=== PATIENT | female | born 1990 | race Caucasian/White ===

== ENCOUNTER 2016-07-12 15:03 | Inpatient (IN) | payer OTHER ==
[2016-07-12] MEDS ORDERED: ACETAMINOPHEN TAB 325 MG TAB PO STA (16:26)
[2016-07-12] MEDS ORDERED: SODIUM CHLORIDE 0.9% 1,000 ML IV STA (16:26)
[2016-07-12] MEDS ORDERED: IV VANCOMYCIN PER PHARMACY 1 EACH MISC MISCELLANE PRN (16:42)
--- NOTE | 2016-07-12 16:42 | ED ---
General Adult HPI - General Chief complaint: Extremity Problem,Nontraumatic Stated complaint: Feet swollen Time Seen by Provider: 07/12/16 16:10 Source: patient Mode of arrival: ambulatory Limitations: no limitations - History of Present Illness Initial comments: The patient is a 26-year-old female who presents to the ED with a chief complaint of lower extremity swelling. Patient states that the swelling has been present intermittently over the course of the past several weeks. She followed up with her primary care physician, who started her on a water pill. Patient states that the swelling has improved in her lower extremities since she started this medication but that she has started to develop blisters on her feet. Patient also notes pain on the bottoms of her feet. She also notes pain and swelling in her hands. The patient does relate an incident approximately 2 weeks ago during which she had a crushing chest pain and pressure. She says she 's had intermittent pains in the left shoulder since that point in time. Patient does admit that she is a heroin user. She is struggling to quit this medication but states that she last used this morning. The patient denies any fevers or chills. She does cite more fatigued than usual recently. Patient denies any past diagnoses of endocarditis. - Related Data Home Medications Medication Instructions Recorded Confirmed ARIPiprazole [Abilify] 10 mg PO DAILY 07/12/16 07/12/16 Buspar (Unk Strength) 1 tab PO DAILY 07/12/16 07/12/16 Butalb/APAP/Caff 50-325-40Mg 1 tab PO Q4H PRN 07/12/16 07/12/16 [Fioricet 50-325-40] Divalproex ER [Depakote ER] 500 mg PO BID 07/12/16 07/12/16 Gabapentin [Neurontin] 300 mg PO TID 07/12/16 07/12/16 Ibuprofen [Motrin] 600 mg PO Q8HR PRN 07/12/16 07/12/16 Mirtazapine [Remeron] 45 mg PO HS 07/12/16 07/12/16 Sertraline [Zoloft] 50 mg PO DAILY 07/12/16 07/12/16 Allergies Allergy/AdvReac Type Severity Reaction Status Date / Time iodine Allergy Rash/Hives Verified 07/12/16 15:43 Review of Systems ROS Statement: Those systems with pertinent positive or pertinent negative responses have been documented in the HPI. ROS Other: All systems not noted in ROS Statement are negative. Constitutional: Reports: night sweats. Denies: fever, chills, weakness Eyes: Denies: eye pain ENT: Denies: ear pain, throat pain, dental pain, epistaxis Respiratory: Denies: cough, dyspnea, wheezes, hemoptysis, stridor Cardiovascular: Reports: chest pain. Denies: palpitations, dyspnea on exertion , orthopnea, edema Endocrine: Reports: fatigue Gastrointestinal: Denies: abdominal pain, nausea, vomiting, diarrhea Genitourinary: Denies: urgency, dysuria, frequency, hematuria Musculoskeletal: Denies: back pain Skin: Reports: rash (on hands), lesions (on bilateral toes), change in color Neurological: Denies: headache, weakness, numbness, paresthesias, confusion Psychiatric: Denies: anxiety, depression Past Medical History Past Medical History: No Reported History Additional Past Medical History / Comment(s): Hep C History of Any Multi-Drug Resistant Organisms: None Reported Past Surgical History: Ear Surgery Past Psychological History: ADD/ADHD Smoking Status: Current every day smoker Past Alcohol Use History: Occasional Past Drug Use History: Heroin General Exam Limitations: no limitations General appearance: alert, in no apparent distress Head exam: Present: atraumatic, normocephalic Eye exam: Present: normal appearance, PERRL, EOMI, other (no subconjunctival hemorrhages noted on exam). Absent: conjunctival injection Pupils: Present: normal accommodation ENT exam: Present: normal exam, normal oropharynx, mucous membranes dry Neck exam: Present: normal inspection, full ROM. Absent: tenderness, meningismus Respiratory exam: Present: normal lung sounds bilaterally. Absent: respiratory distress, wheezes, rales, rhonchi, stridor, chest wall tenderness Cardiovascular Exam: Present: tachycardia, systolic murmur (2/6 systolic murmur on exam) GI/Abdominal exam: Present: soft. Absent: tenderness, guarding, rebound, rigid Extremities exam: Present: other (trace swelling of the bilateral hands and feet. The patient's palms and soles are noted to be erythematous) Back exam: Present: normal inspection, full ROM Neurological exam: Present: alert, oriented X3 Psychiatric exam: Present: normal affect, normal mood Skin exam: Present: warm, dry, intact, other (Patient has Janeway lesions on the bilateral hands. Osler's nodes located on the bilateral great toes) Course Vital Signs 07/12/16 07/12/16 07/12/16 15:38 16:34 18:38 Temperature 97.8 F Pulse Rate 112 H 95 Pulse Rate [ 110 H Bilateral Radial] Respiratory 16 14 Rate Blood Pressure 102/55 118/66 O2 Sat by Pulse 95 99 Oximetry EKG Findings - EKG Comments: EKG Findings:: EKG demonstrates normal sinus rhythm. There are no concerning ST T changes. The ME and QRS intervals are within normal limits. Medical Decision Making - Medical Decision Making Patient is a 26-year-old female who presents to ED with a chief complaint of swelling of the bilateral lower extremities. Patient states that this has been present for the past 2 weeks. Patient recently started on a water pill with some improvement of symptoms. However, she has developed blisters on her bilateral great toes during this time. Patient also states that she had an episode two weeks ago of crushing chest pain. Persistent shoulder pain occurring intermittently since that point in time. Patient is regular IV drug user. On inspection, bleeding the patient has Janeway lesions the bilateral hands and Osler's nodes on the bilateral great toes. Patient has 2/6 systolic murmur on auscultation. Patient noted to be tachycardic. Concern for bacterial endocarditis until proven otherwise. Obtain blood cultures 3. Chest x-ray. CBC, BMP, mag. Check coags, troponin, BNP as well. Cover patient with vancomycin. 7:06 PM Spoke with [facility], who accepts admission for Dr. Jimenez. She has requested that Infectious Disease and Cardiology be placed on consult. Patient is comfortable at this point in time. - Lab Data Result diagrams: 07/12/16 17:06 07/12/16 17:06 Lab Results 07/12/16 07/12/16 07/12/16 Range/Units 17:06 17:06 17:06 WBC 6.7 (3.8-10.6) k/uL RBC 4.01 (3.80-5.40) m/uL Hgb 12.3 (11.4-16.0) gm/dL Hct 36.6 (34.0-46.0) % MCV 91.2 (80.0-100.0) fL MCH 30.8 (25.0-35.0) pg MCHC 33.7 (31.0-37.0) g/dL RDW 13.4 (11.5-15.5) % Plt Count 237 (150-450) k/uL Neutrophils % 56 % Lymphocytes % 27 % Monocytes % 4 % Eosinophils % 9 % Basophils % 1 % Neutrophils # 3.7 (1.3-7.7) k/uL Lymphocytes # 1.8 (1.0-4.8) k/uL Monocytes # 0.2 (0-1.0) k/uL Eosinophils # 0.6 (0-0.7) k/uL Basophils # 0.0 (0-0.2) k/uL PT (9.0-12.0) sec INR (<1.1) APTT (22.0-30.0) sec Sodium 136 L (137-145) mmol/L Potassium 4.1 (3.5-5.1) mmol/L Chloride 100 (98-107) mmol/L Carbon Dioxide 27 (22-30) mmol/L Anion Gap 9 mmol/L BUN 15 (7-17) mg/dL Creatinine 0.70 (0.52-1.04) mg/dL Est GFR (MDRD) Af Amer >60 (>60 ml/min/1.73 sqM) Est GFR (MDRD) Non-Af >60 (>60 ml/min/1.73 sqM) Glucose 92 (74-99) mg/dL Calcium 9.1 (8.4-10.2) mg/dL Total Bilirubin 0.6 (0.2-1.3) mg/dL AST 54 H (14-36) U/L ALT 70 H (9-52) U/L Alkaline Phosphatase 87 (38-126) U/L Troponin I (0.000-0.034) ng/mL NT-Pro-B Natriuret Pep 34 pg/mL Total Protein 7.7 (6.3-8.2) g/dL Albumin 4.0 (3.5-5.0) g/dL 07/12/16 07/12/16 Range/Units 17:06 17:06 WBC (3.8-10.6) k/uL RBC (3.80-5.40) m/uL Hgb (11.4-16.0) gm/dL Hct (34.0-46.0) % MCV (80.0-100.0) fL MCH (25.0-35.0) pg MCHC (31.0-37.0) g/dL RDW (11.5-15.5) % Plt Count (150-450) k/uL Neutrophils % % Lymphocytes % % Monocytes % % Eosinophils % % Basophils % % Neutrophils # (1.3-7.7) k/uL Lymphocytes # (1.0-4.8) k/uL Monocytes # (0-1.0) k/uL Eosinophils # (0-0.7) k/uL Basophils # (0-0.2) k/uL PT 9.9 (9.0-12.0) sec INR 1.0 (<1.1) APTT 25.9 (22.0-30.0) sec Sodium (137-145) mmol/L Potassium (3.5-5.1) mmol/L Chloride (98-107) mmol/L Carbon Dioxide (22-30) mmol/L Anion Gap mmol/L BUN (7-17) mg/dL Creatinine (0.52-1.04) mg/dL Est GFR (MDRD) Af Amer (>60 ml/min/1.73 sqM) Est GFR (MDRD) Non-Af (>60 ml/min/1.73 sqM) Glucose (74-99) mg/dL Calcium (8.4-10.2) mg/dL Total Bilirubin (0.2-1.3) mg/dL AST (14-36) U/L ALT (9-52) U/L Alkaline Phosphatase (38-126) U/L Troponin I <0.012 (0.000-0.034) ng/mL NT-Pro-B Natriuret Pep pg/mL Total Protein (6.3-8.2) g/dL Albumin (3.5-5.0) g/dL Disposition Clinical Impression: Acute bacterial endocarditis Disposition: ADMITTED IP TO THIS [facility] Condition: Good Time of Disposition: 19:07 Decision to Admit Reason: Admit from EC Decision Date: 07/12/16 Decision Time: 19:08
[2016-07-12] MEDS ORDERED: LORazepam 2 MG/ML SYRINGE IV STA (17:06)
[2016-07-12 17:17] LABS: Basophils % (A) 1 %; CH 31.8; Eosinophils # (A) 0.6 k/uL (0-0.7); Eosinophils % (A) 9 %; HCT 36.6 % (34.0-46.0); HDW 3.04; HGB 12.3 gm/dL (11.4-16.0); Luc # (Auto) 0.25; Luc % (Auto) 4; Lymphocytes # (A) 1.8 k/uL (1.0-4.8); Lymphocytes % (A) 27 %; MCH 30.8 pg (25.0-35.0); MCHC 33.7 g/dL (31.0-37.0); MCV 91.2 fL (80.0-100.0); Mean Platelet Volume 7.5; Monocytes # (A) 0.2 k/uL (0-1.0); Monocytes % (A) 4 %; Neutrophils # (A) 3.7 k/uL (1.3-7.7); Neutrophils % (A) 56 %; RBC 4.01 m/uL (3.80-5.40); RDW 13.4 % (11.5-15.5); WBC 6.7 k/uL (3.8-10.6); WBC (Perox) 6.96
[2016-07-12 17:24] LABS: Partial Thromboplastin Time 25.9 sec (22.0-30.0); Prothrombin Time 9.9 sec (9.0-12.0)
[2016-07-12 17:27] LABS: ALT 70 U/L (9-52); AST 54 U/L (14-36); Alkaline Phosphatase 87 U/L (38-126); Anion Gap 9 mmol/L; Blood Urea Nitrogen 15 mg/dL (7-17); Calcium 9.1 mg/dL (8.4-10.2); Carbon Dioxide 27 mmol/L (22-30); Chloride 100 mmol/L (98-107); Glucose 92 mg/dL (74-99); Non-African American GFR(MDRD) >60 (>60 ml/min/1.73 sqM); Potassium 4.1 mmol/L (3.5-5.1); Sodium 136 mmol/L (137-145); Total Bilirubin 0.6 mg/dL (0.2-1.3); Total Protein 7.7 g/dL (6.3-8.2)
[2016-07-12] MEDS ORDERED: VANCOMYCIN 1,500 MG in SODIUM CHLORIDE 0.9% 250 ML IVPB ONE (17:30)
--- NOTE | 2016-07-12 17:44 | XR ---
EXAMINATION TYPE: XR chest 2V DATE OF EXAM: 07/12/2016 5:36 PM COMPARISON: 07/07/2013 HISTORY: Pain and swelling TECHNIQUE: Frontal and lateral views of the chest are obtained. FINDINGS: Heart and mediastinum are normal. Lungs are clear. Diaphragm is normal. Bony thorax is int act. There are chest leads. IMPRESSION: Normal chest, no change
--- NOTE | 2016-07-12 18:46 | US ---
EXAMINATION TYPE: US venous doppler duplex LE BI DATE OF EXAM: 07/12/2016 6:24 PM COMPARISON: NONE CLINICAL HISTORY: Pain. Swelling SIDE PERFORMED: Bilateral VESSELS IMAGED: External Iliac Vein (EIV) Common Femoral Vein Deep Femoral Vein Greater Saphenous Vein * Femoral Vein Popliteal Vein Small Saphenous Vein * Proximal Calf Veins (* superficial vessels) Right Leg: Negative for DVT Left Leg: Negative for DVT IMPRESSION: Normal exam. No evidence of deep venous thrombosis in both legs.
[2016-07-12] MEDS ORDERED: NALOXONE 0.4 MG/ML 1 ML VIAL IV PRN (19:08)
[2016-07-12 19:09] LABS: Appearance,Urine Clear (Clear); Bacteria,Urine Rare /hpf; Bilirubin,Urine Negative (Negative); Glucose,Urine (UA) Negative (Negative); Ketones,Urine Negative (Negative); Leukocyte Esterase,Urine Negative (Negative); Nitrite,Urine Negative (Negative); PH, Urine 5.5 (5.0-8.0); Particle Count 1329; Protein,Urine Negative (Negative); Specific Gravity,Urine 1.004 (1.001-1.035); Squamous Epithelial Cell,Urine 1 /hpf (0-4); UA Billing (MACRO vs. MICRO) MICRO; Urobilinogen,Urine <2.0 mg/dL (<2.0); WBC,Urine 1 /hpf (0-5)
[2016-07-12] MEDS ORDERED: BUTALB/APAP/CAFF 50-325-40MG TAB PO PRN (21:00)
[2016-07-12] MEDS ORDERED: IBUPROFEN 600 MG TAB PO PRN (21:00)
[2016-07-12] MEDS ORDERED: ALBUTEROL NEBULIZED 2.5 MG/3 ML INHALATION PRN (21:00)
[2016-07-12] MEDS ORDERED: BUSPAR PO SCH (21:00)
[2016-07-12] MEDS: DIVALPROEX ER 500 MG TAB.ER.24H PO SCH (21:39)
[2016-07-12] MEDS: DOXYCYCLINE 50 MG CAP PO SCH (21:39)
[2016-07-12] MEDS: MIRTAZAPINE 45 MG TABLET PO SCH (21:40)
[2016-07-12] MEDS: GABAPENTIN 300 MG CAP PO SCH (21:40)
[2016-07-12] MEDS: FUROSEMIDE 20 MG TAB PO SCH (21:40)
[2016-07-12] MEDS: cloNIDine HCL 0.1 MG TAB PO SCH (21:40)
[2016-07-12] MEDS: NICOTINE 14MG/24HR PATCH TRANSDERM SCH (21:40)
[2016-07-12] MEDS: LORazepam 2 MG/ML SYRINGE IV PRN (21:49)
[2016-07-12] MEDS: VANCOMYCIN 1,500 MG in SODIUM CHLORIDE 0.9% 250 ML IVPB SCH (23:57)
[2016-07-13 06:52] LABS: ALT 67 U/L (9-52); AST 42 U/L (14-36); Alkaline Phosphatase 76 U/L (38-126); Anion Gap 7 mmol/L; Blood Urea Nitrogen 11 mg/dL (7-17); Calcium 8.6 mg/dL (8.4-10.2); Carbon Dioxide 25 mmol/L (22-30); Chloride 109 mmol/L (98-107); Glucose 112 mg/dL (74-99); Magnesium 1.6 mg/dL (1.6-2.3); Non-African American GFR(MDRD) >60 (>60 ml/min/1.73 sqM); Potassium 4.1 mmol/L (3.5-5.1); Sodium 141 mmol/L (137-145); Total Bilirubin 0.3 mg/dL (0.2-1.3)
[2016-07-13 07:02] LABS: Basophils % (A) 1 %; CH 31.6; CHCM 34.4; Eosinophils # (A) 0.4 k/uL (0-0.7); Eosinophils % (A) 10 %; HCT 33.5 % (34.0-46.0); HDW 2.95; HGB 11.4 gm/dL (11.4-16.0); Luc # (Auto) 0.14; Luc % (Auto) 3; Lymphocytes # (A) 1.8 k/uL (1.0-4.8); Lymphocytes % (A) 41 %; MCH 31.4 pg (25.0-35.0); MCV 92.2 fL (80.0-100.0); Mean Platelet Volume 6.7; Monocytes # (A) 0.3 k/uL (0-1.0); Monocytes % (A) 6 %; Neutrophils # (A) 1.8 k/uL (1.3-7.7); Neutrophils % (A) 40 %; RBC 3.64 m/uL (3.80-5.40); RDW 13.4 % (11.5-15.5); WBC 4.5 k/uL (3.8-10.6); WBC (Perox) 4.83
[2016-07-13] MEDS: NICOTINE 14MG/24HR PATCH TRANSDERM SCH (08:52)
[2016-07-13] MEDS: VANCOMYCIN 1,500 MG in SODIUM CHLORIDE 0.9% 250 ML IVPB SCH ×2 (08:52→17:14)
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
--- NOTE | 2016-07-13 10:00 | HP ---
DATE OF ADMISSION: 07/12/2016 CHIEF COMPLAINT: Swollen feet and pain. HISTORY OF PRESENT ILLNESS: This 26-year-old woman with past medical history of multiple medical problems including asthma, GERD, history of pneumonia, previous history of bronchitis, history of ulcers, history of ADHD, history of depression, PTSD, history of nicotine dependence, being followed by [facility] apparently in the outpatient setting present to [facility] with complaints of bilateral leg swelling and pain. The patient was using heroin on the right side, multiple sites on the right side and patient also in rehab in [place]. There is no history of any fever, rigors, chills. No history of headache, loss of consciousness or seizures. The infective endocarditis suspected and patient admitted for further evaluation and treatment. PAST MEDICAL HISTORY: History of asthma, gastroesophageal reflux disease, history of pneumonia, history of hepatitis, history of bronchitis, ADHD, history of depression, PTSD. Medications prior to admission include home medications: 1. Albuterol 2 puffs q.i.d. p.r.n. 2. BuSpar 1 tablet p.r.n. 3. Monodox 100 mg p.o. daily. 4. Lasix 20 mg p.o. q.48 hours. 5. Motrin 600 mg q.8 p.r.n. 6. Neurontin 300 mg p.o. t.i.d. 7. Depakote ER 500 mg p.o. b.i.d. p.r.n. 8. Fioricet 50/325 mg 1 tablet q.4 p.r.n. 9. Abilify 10 mg p.o. daily. 10. Zoloft 50 mg p.o. daily. 11. Remeron 45 mg p.o. at bedtime. ALLERGIES: IODINE. FAMILY HISTORY: Cirrhosis in the family. SOCIAL HISTORY: History of smoking, history of IV drug abuse and history of alcohol intake. REVIEW OF SYSTEMS: ENT: No diminished hearing. No diminished suspicious. CARDIOVASCULAR: As mentioned earlier. RESPIRATORY: As mentioned earlier. GI: No nausea. : No dysuria. NERVOUS SYSTEM: No numbness or weakness. ALLERGY/IMMUNOLOGY: As mentioned earlier. MUSCULOSKELETAL: As mentioned earlier. HEMATOLOGY: No history of anemia. ENDOCRINE: No history of diabetes or hypothyroidism. CONSTITUTIONAL: As mentioned earlier. DERMATOLOGY: Negative. RHEUMATOLOGY: Negative. PSYCHIATRY: As mentioned earlier. PHYSICAL EXAMINATION: Patient is alert and oriented x3. Pulse 110, blood pressure 118/63, respirations 14, temperature 96.5, pulse ox 99% on room air. HEENT: Conjunctivae normal. NECK: No jugular venous distention. CARDIOVASCULAR: S1 and S2, muffled. RESPIRATORY: Breath sounds diminished at the bases. No rhonchi, no crackles. ABDOMEN: Soft, nontender. No mass palpable. No hepatosplenomegaly. EXTREMITIES: Examination of the feet, both feet are erythematous and blood blisters also present. No definite petechia noted. Slightly tender. Minimal edema also present. LYMPHATIC: No lymphadenopathy in the neck, axillae or groin. SKIN: As mentioned earlier. JOINTS: No active deforming arthropathy. diffuse lymphadenopathy present. LAB INVESTIGATIONS: CBC within normal limits. Sodium is 136. AST 54, ALT 70. ASSESSMENT: 1. Bilateral feet swelling and skin lesions, rule out infective endocarditis. 2. History of IV drug abuse. 3. Hyponatremia. 4. Increased AST, ALT, possibly chronic hepatitis C. 5. History of asthma. 6. History of gastroesophageal reflux disease. 7. History of pneumonia. 8. History of bronchitis. 9. History of ulcers. 10. History of claustrophobia. 11. History of attention deficit disorder, attention hyperactivity deficit disorder. 12. History of depression, posttraumatic stress syndrome. 13. History of nicotine dependence, continued ongoing. 14. History of heroin abuse. 15. FULL CODE. RECOMMENDATIONS AND DISCUSSION: In this 26-year-old woman who presented with multiple complex medical issues, will monitor the patient closely. Continue the current medications. Continue symptomatic treatment. Otherwise, will initiate broad-spectrum IV antibiotics. Consult Infectious Disease, Dr. De Souza. Symptomatic treatment. Home medications will be continued. DVT prophylaxis. A 2-D echo and as well as BEHZAD also will be ordered. Otherwise, the prognosis guarded. Further recommendations to follow. Also advised the patient to have rehab also. KEELY
--- NOTE | 2016-07-13 10:41 | ECHOF ---
Referral Reason:infective endocarditis MEASUREMENTS -------- HEIGHT: 172.7 cm WEIGHT: 95.7 kg BP: 102/52 IVSd: 0.9 cm (0.6 - 1.1) LVIDd: 5.1 cm (3.9 - 5.3) LVPWd: 0.9 cm (0.6 - 1.1) IVSs: 1.5 cm LVIDs: 2.5 cm LVPWs: 1.8 cm Ao Diam: 3.0 cm (2.0 - 3.7) AV Cusp: 2.2 cm (1.5 - 2.6) LA Diam: 3.1 cm (2.7 - 3.8) MV EXCURSION: 18.742 mm (> 18.000) MV EF SLOPE: 116 mm/s (70 - 150) EPSS: 0.5 cm MV E Guicho: 1.03 m/s MV DecT: 183 ms MV A Guicho: 0.64 m/s MV E/A Ratio: 1.60 RAP: 5.00 mmHg RVSP: 20.64 mmHg FINDINGS -------- Sinus rhythm. This was a technically good study. The left ventricular size is normal. Left ventricular wall thickness is normal. Overall left ventricular systolic function is normal with, an EF between 55 - 60 %. The right ventricle is normal in size and function. The left atrium is normal in size. The right atrium is normal in size. The aortic valve is trileaflet, and appears structurally normal. No aortic stenosis or regurgitation. The mitral valve is normal. There is trace mitral regurgitation. The tricuspid valve appears structurally normal. Mild tricuspid regurgitation present. The right ventricular systolic pressure, as measured by Doppler, is 20.64mmHg. There is no pulmonic regurgitation present. The aortic root size is normal. There is no pericardial effusion. CONCLUSIONS -------- 1. Sinus rhythm. 2. There is no pulmonic regurgitation present. 3. The aortic root size is normal. 4. There is no pericardial effusion. 5. This was a technically good study. 6. Left ventricular wall thickness is normal. 7. Overall left ventricular systolic function is normal with, an EF between 55 - 60 %. 8. The left atrium is normal in size. 9. The aortic valve is trileaflet, and appears structurally normal. No aortic stenosis or regurgitation. 10. There is trace mitral regurgitation. 11. Mild tricuspid regurgitation present. 12. The right ventricular systolic pressure, as measured by Doppler, is 20.64mmHg. [employer] INSPECTOR: Ximena Hightower RDCS
[2016-07-13] MEDS: DOXYCYCLINE 50 MG CAP PO SCH (12:16)
[2016-07-13] MEDS: LORazepam 2 MG/ML SYRINGE IV PRN ×3 (12:17→21:19)
[2016-07-13] MEDS ORDERED: MIDAZOLAM 2 MG/2 ML VIAL ONE (13:56)
[2016-07-13] MEDS ORDERED: fentaNYL (PF) 50 MCG/ML 2 ML AMP ONE (13:57)
[2016-07-13] MEDS ORDERED: IV FLUID CONTINUATION 300 ML IV ONE (14:01)
[2016-07-13] MEDS ORDERED: BENZOCAINE SPRAY 100 APPLIC/CAN MUCOUS MEM ONE (14:16)
[2016-07-13] MEDS ORDERED: fentaNYL (PF) 50 MCG/ML 2 ML AMP IV ONE (14:26)
[2016-07-13] MEDS ORDERED: MIDAZOLAM 2 MG/2 ML VIAL IVP ONE ×2 (14:26→14:31)
[2016-07-13] MEDS ORDERED: LIDOCAINE 1% INJ 10MG/ML (20 ML MDV) ONE (14:45)
[2016-07-13] MEDS ORDERED: PROPOFOL 10 MG/ML 20 ML VIAL IV ONE (14:45)
--- NOTE | 2016-07-13 15:51 | ECHOT ---
DATE OF SERVICE: July 13, 2016. Performing physician: David Deluna M.D., camp advisor. PROCEDURE PERFORMED: Transesophageal echocardiogram. INDICATION: Rule out endocarditis. The BEHZAD was requested to be performed by Dr. De Souza. Sedation: Initially we tried conscious sedation, but the patient could not tolerate it so we called anesthesia and the patient had deep sedation with propofol. PROCEDURE DESCRIPTION: After obtaining an informed consent, the patient was brought to the transesophageal echocardiogram suite. Initially we tried conscious sedation, but the patient did not tolerate the probe in the esophagus so we have to pull the probe out. At that point we called anesthesia and the patient was given propofol. Subsequently, I passed the transesophageal echocardiogram probe to the midesophagus, where 2-D echocardiogram images as well as color Doppler images of various cardiac structures were obtained. Particular attention was paid to the intracardiac valves. The procedure was completed without any complication. FINDINGS: The left ventricular dimension and systolic function appeared to be within normal limits with an ejection fraction of 55% and normal wall motion. The right ventricle is of normal size and function. The left atrium and right atrium dimension appeared to be within normal limits. Left atrial appendage appeared to be free from any thrombus. The interatrial septum appeared to be intact. The aortic valve is trileaflet valve without stenosis or regurgitation. The mitral valve is normal. Normal tricuspid valve and pulmonic valve. CONCLUSION: 1. There is no evidence of endocarditis seen. 2. Normal intracardiac valves. 3. Normal left ventricular dimension and systolic function. 4. Normal right ventricular dimension and systolic function. 5. Normal cardiac chamber sizes. 6. No evidence of pericardial effusion.
[2016-07-13] MEDS: GABAPENTIN 300 MG CAP PO SCH ×3 (17:10→21:17)
[2016-07-13] MEDS: DIVALPROEX ER 500 MG TAB.ER.24H PO SCH ×2 (17:10→21:17)
[2016-07-13] MEDS: cloNIDine HCL 0.1 MG TAB PO SCH ×3 (17:11→21:17)
[2016-07-13] MEDS: ARIPiprazole 10 MG TAB PO SCH (17:14)
[2016-07-13] MEDS: SERTRALINE 50 MG TAB PO SCH (17:14)
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
[2016-07-13] MEDS: MIRTAZAPINE 45 MG TABLET PO SCH (21:17)
--- NOTE | 2016-07-13 21:41 | PN ---
DATE OF SERVICE: 07/13/2016 This 26-year-old woman with a past history significant for IV drug abuse admitted with bilateral leg swelling. Patient had workup for endocarditis. Two-D echo and BEHZAD did not show any vegetations. The final cultures are pending at this time. Infectious Disease also following the patient. No chest pain or palpitations. On exam, alert and oriented x3. Pulse 76, blood pressure 103/56, respirations 16, temperature is normal, pulse ox 99% on 2L. HEENT: Conjunctivae normal. NECK: No jugular venous distension. CARDIOVASCULAR: S1 and S2 muffled. RESPIRATORY: Breath sounds diminished in the bases. No rhonchi. No crackles. ABDOMEN: Soft, nontender. LEGS: Blisters and some erythema present on both feet. NERVOUS SYSTEM: No focal deficits. LABS: WBC 12.5, hemoglobin 11.4. AST, ALT 42, 67. ASSESSMENT: 1. Bilateral feet swelling and skin lesions, rule out infective endocarditis. 2. History of IV drug abuse. 3. Hyponatremia. 4. Increased AST, ALT, possibly chronic hepatitis C. 5. History of asthma. 6. History of gastroesophageal reflux disease. 7. History of pneumonia. 8. History of bronchitis. 9. History of ulcers. 10. History of claustrophobia. 11. History of attention deficit hyperactivity disorder. 12. History of depression, posttraumatic stress disorder. 13. History of nicotine dependence, continued ongoing. 14. History of IV heroin abuse. 15. FULL CODE. RECOMMENDATIONS AND DISCUSSION: Recommend to continue current medications, continue with monitoring and symptomatic treatment. Otherwise, at this time I would monitor the patient closely with Infectious Disease, empiric antibiotics. Guarded prognosis because of multiple complex medical issues. Further recommendations to follow.
[2016-07-13] MEDS ORDERED: VANCOMYCIN TROUGH DUE 1 EACH MISC MISCELLANE ONE (23:00)
[2016-07-14] MEDS: VANCOMYCIN 1,500 MG in SODIUM CHLORIDE 0.9% 250 ML IVPB SCH ×2 (01:10→08:49)
[2016-07-14 07:11] LABS: Basophils % (A) 1 %; CH 31.2; CHCM 33.9; Eosinophils # (A) 0.4 k/uL (0-0.7); Eosinophils % (A) 7 %; HCT 33.1 % (34.0-46.0); HDW 2.99; HGB 11.2 gm/dL (11.4-16.0); Luc # (Auto) 0.18; Luc % (Auto) 4; Lymphocytes # (A) 2.1 k/uL (1.0-4.8); Lymphocytes % (A) 41 %; MCH 31.2 pg (25.0-35.0); MCHC 33.9 g/dL (31.0-37.0); MCV 92.2 fL (80.0-100.0); Mean Platelet Volume 7.1; Monocytes # (A) 0.3 k/uL (0-1.0); Monocytes % (A) 5 %; Neutrophils # (A) 2.2 k/uL (1.3-7.7); Neutrophils % (A) 42 %; RBC 3.59 m/uL (3.80-5.40); RDW 13.3 % (11.5-15.5); WBC 5.1 k/uL (3.8-10.6); WBC (Perox) 5.24
[2016-07-14 07:23] LABS: ALT 61 U/L (9-52); AST 47 U/L (14-36); Alkaline Phosphatase 61 U/L (38-126); Anion Gap 6 mmol/L; Blood Urea Nitrogen 8 mg/dL (7-17); Calcium 8.5 mg/dL (8.4-10.2); Carbon Dioxide 23 mmol/L (22-30); Chloride 114 mmol/L (98-107); Glucose 96 mg/dL (74-99); Non-African American GFR(MDRD) >60 (>60 ml/min/1.73 sqM); Potassium 4.1 mmol/L (3.5-5.1); Sodium 143 mmol/L (137-145); Total Bilirubin 0.4 mg/dL (0.2-1.3)
[2016-07-14 07:44] LABS: HIV-1/HIV-2 Ab Screen NONREAC (NON REAC)
--- NOTE | 2016-07-14 08:34 | US ---
EXAMINATION TYPE: US abdomen limited DATE OF EXAM: 07/14/2016 8:04 AM COMPARISON: NONE CLINICAL HISTORY: hepatitis. EXAM MEASUREMENTS: Liver Length: 15.1 cm Gallbladder Wall: 0.3 cm CBD: 0.3 cm Right Kidney: 10.6 x 4.5 x 4.9 cm Pancreas: Limited views of the pancreas are unremarkable. Liver: visualized portions appear wnl Gallbladder: mobile stone = 2.1cm Evidence for sonographic Reynoso's sign: Yes CBD: appears wnl Right Kidney: no evidence of hydronephrosis or mass as visualized IMPRESSION: CHOLELITHIASIS.
[2016-07-14] MEDS: NICOTINE 14MG/24HR PATCH TRANSDERM SCH (08:49)
[2016-07-14] MEDS: SERTRALINE 50 MG TAB PO SCH (08:49)
[2016-07-14] MEDS: cloNIDine HCL 0.1 MG TAB PO SCH ×3 (08:49→22:03)
[2016-07-14] MEDS: ARIPiprazole 10 MG TAB PO SCH (08:49)
[2016-07-14] MEDS: DIVALPROEX ER 500 MG TAB.ER.24H PO SCH ×2 (08:49→22:03)
[2016-07-14] MEDS: GABAPENTIN 300 MG CAP PO SCH ×3 (08:49→22:03)
[2016-07-14 11:45] VITALS: RESP 18
[2016-07-14] MEDS: LORazepam 2 MG/ML SYRINGE IV PRN ×3 (12:15→22:05)
[2016-07-14] MEDS ORDERED: VANCOMYCIN 1,750 MG in SODIUM CHLORIDE 0.9% 250 ML IVPB SCH (14:00)
[2016-07-14] MEDS: MIRTAZAPINE 45 MG TABLET PO SCH (22:03)
[2016-07-14] MEDS: FUROSEMIDE 20 MG TAB PO SCH (22:03)
[2016-07-14 23:02] VITALS: BP 119/71; PULSE 85; TEMP 98.2
[2016-07-15] MEDS ORDERED: VANCOMYCIN TROUGH DUE 1 EACH MISC MISCELLANE ONE (13:00)
--- NOTE | 2016-07-15 13:40 | PN ---
DATE OF SERVICE: 07/14/2016 This 26-year-old woman was admitted with bilateral leg swelling and skin lesions, being evaluated. Abdominal ultrasound showed cholelithiasis. Otherwise, no chest pain or palpitation. No fever. On exam, alert and alert and oriented x three. Pulse is 70, blood pressure 118/55, respiratory rate 18, temperature 98.3. pulse ox 94% on room air. HEENT: Conjunctivae normal. NECK: No jugular venous distention. CARDIOVASCULAR: S1, S2 muffled. RESPIRATORY: Breath sounds diminished at the bases. ABDOMEN: Soft. Nontender. LEGS: No edema. No swelling. CENTRAL NERVOUS SYSTEM: No focal deficits. LABS: WBC 5.7, Hemoglobin 11.2, AST, ALT; noted. ASSESSMENT: 1. Bilateral feet swelling and skin lesion, rule out infective endocarditis. 2. History of IV drug abuse. 3. Cholelithiasis. 4. Hyponatremia. 5. Increased AST, ALT, possible chronic hepatitis C. 6. History of asthma. 7. History of gastroesophageal reflux disease. 8. History of pneumonia. 9. History of bronchitis. 10. History of ulcers. 11. History of claustrophobia. 12. History of attention deficit hyperactivity disorder. 13. Depression, posttraumatic stress disorder. 14. History of nicotine dependence, continued ongoing. 15. History of IV heroin abuse. 16. FULL CODE. RECOMMENDATIONS AND DISCUSSION: Recommend to continue the current medications, continue with monitoring, symptomatic treatment. Otherwise, at this time, I will monitor the patient closely. Closely follow with infectious disease. Final culture reports are pending. Negative so far. Guarded prognosis. Further recommendations to follow.
--- NOTE | 2016-07-15 15:25 | DS ---
DATE OF ADMISSION: 07/12/2016 DATE OF DISCHARGE: 07/15/2016 FINAL DIAGNOSIS(ES): 1. Bilateral feet swelling and skin lesions possible skin blisters and cellulitis. 2. IV drug abuse. 3. Endocarditis unlikely. 4. Hyponatremia. 5. Increased AST, ALT, possibly chronic hepatitis C. 6. History of asthma. 7. History of gastroesophageal reflux disease. 8. History of pneumonia. 9. History of bronchitis. 11. Claustrophobia. 12. History of ADHD. 13. History of depression, posttraumatic stress disorder. 14. History of nicotine dependence ongoing. 15. History of IV heroin abuse. 16. FULL CODE. DISCHARGE DISPOSITION: Patient left the hospital AGAINST MEDICAL ADVICE. HISTORY OF PRESENT ILLNESS: This 26-year-old woman with a past history of multiple medical problems admitted with suspicious endocarditis. BEHZAD Negative. Cultures negative but; however, the patient left the hospital AGAINST MEDICAL ADVICE. Prognosis extremely guarded. Please refer to the previous dictation for further information. MTDD
== END 2016-07-15 01:17 | disposition left against medical advice (07) | DRG 442 ==
LOC: EC 15:03 → 6SEL 19:11 → 5MS5E 07-14 11:33
PROVIDERS: ADMIT Internal Medicine; ATTEND Internal Medicine
PROC: B246ZZ4 Ultrasonography of Right and Left Heart, Transesophageal (ICD-10-PCS; principal; 2016-07-13 14:00)
DX: B18.2 Chronic viral hepatitis C (principal); L03.116 Cellulitis of left lower limb; L03.115 Cellulitis of right lower limb; E87.1 Hypo-osmolality and hyponatremia; E87.70 Fluid overload, unspecified; J45.909 Unspecified asthma, uncomplicated; K21.9 Gastro-esophageal reflux disease without esophagitis; R01.1 Cardiac murmur, unspecified; R00.0 Tachycardia, unspecified; K80.20 Calculus of gallbladder without cholecystitis without obstruction; F32.9 Major depressive disorder, single episode, unspecified; F11.10 Opioid abuse, uncomplicated; S80.822A Blister (nonthermal), left lower leg, initial encounter; S80.821A Blister (nonthermal), right lower leg, initial encounter; R07.9 Chest pain, unspecified; L98.9 Disorder of the skin and subcutaneous tissue, unspecified; M25.519 Pain in unspecified shoulder; R60.0 Localized edema; F43.10 Post-traumatic stress disorder, unspecified; F90.9 Attention-deficit hyperactivity disorder, unspecified type; F40.240 Claustrophobia; F17.200 Nicotine dependence, unspecified, uncomplicated; Z79.1 Long term (current) use of non-steroidal anti-inflammatories (NSAID); Z87.01 Personal history of pneumonia (recurrent); Z79.899 Other long term (current) drug therapy; Z87.11 Personal history of peptic ulcer disease; Z91.410 Personal history of adult physical and sexual abuse; Z53.21 Procedure and treatment not carried out due to patient leaving prior to being seen by health care provider; Z62.810 Personal history of physical and sexual abuse in childhood; Z87.09 Personal history of other diseases of the respiratory system; Z86.19 Personal history of other infectious and parasitic diseases; Z83.79 Family history of other diseases of the digestive system; Z91.041 Radiographic dye allergy status; Z79.891 Long term (current) use of opiate analgesic; Z79.2 Long term (current) use of antibiotics
CPT/HCPCS: 36415; 71020; 76705; 80053; 80202; 80306; 81001; 81025; 83605; 83735; 83880; 84484; 85025; 85610; 85730; 87040; 87086; 87389; 93005; 93306; 93312; 93320; 93325; 93970; 96361; 96365; 96375; 99285

== ENCOUNTER 2016-08-08 11:44 | Emergency (ER) | payer OTHER ==
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
[2016-08-08 13:23] LABS: ALT 44 U/L (9-52); AST 34 U/L (14-36); Alkaline Phosphatase 58 U/L (38-126); Anion Gap 7 mmol/L; Blood Urea Nitrogen 14 mg/dL (7-17); Calcium 9.1 mg/dL (8.4-10.2); Carbon Dioxide 24 mmol/L (22-30); Chloride 109 mmol/L (98-107); Glucose 96 mg/dL (74-99); Non-African American GFR(MDRD) >60 (>60 ml/min/1.73 sqM); Potassium 4.5 mmol/L (3.5-5.1); Sodium 140 mmol/L (137-145); Total Bilirubin 0.5 mg/dL (0.2-1.3)
[2016-08-08 13:25] LABS: Basophils % (A) 1 %; CH 31.3; CHCM 34.3; Eosinophils # (A) 0.4 k/uL (0-0.7); Eosinophils % (A) 6 %; HCT 33.6 % (34.0-46.0); HDW 3.08; HGB 11.3 gm/dL (11.4-16.0); Luc # (Auto) 0.12; Luc % (Auto) 2; Lymphocytes # (A) 1.9 k/uL (1.0-4.8); Lymphocytes % (A) 29 %; MCH 30.8 pg (25.0-35.0); MCHC 33.6 g/dL (31.0-37.0); MCV 91.7 fL (80.0-100.0); Monocytes # (A) 0.3 k/uL (0-1.0); Monocytes % (A) 5 %; Neutrophils # (A) 3.7 k/uL (1.3-7.7); Neutrophils % (A) 58 %; RBC 3.67 m/uL (3.80-5.40); RDW 13.7 % (11.5-15.5); WBC 6.4 k/uL (3.8-10.6); WBC (Perox) 6.72
[2016-08-08 13:28] LABS: Appearance,Urine Clear (Clear); Bilirubin,Urine Negative (Negative); Glucose,Urine (UA) Negative (Negative); Ketones,Urine Negative (Negative); Leukocyte Esterase,Urine Large (Negative); Mucus,Urine Rare /hpf; Nitrite,Urine Negative (Negative); PH, Urine 5.5 (5.0-8.0); Particle Count 3412; Protein,Urine Trace (Negative); RBC,Urine 11 /hpf (0-5); Specific Gravity,Urine 1.022 (1.001-1.035); Squamous Epithelial Cell,Urine 1 /hpf (0-4); UA Billing (MACRO vs. MICRO) MICRO; Urobilinogen,Urine <2.0 mg/dL (<2.0); WBC,Urine 16 /hpf (0-5)
[2016-08-08 14:24] VITALS: BP 122/66; PULSE 73; RESP 16; TEMP 97.8
== END 2016-08-08 14:26 | disposition home or self-care (01) ==
LOC: EC 11:44
DX: N39.0 Urinary tract infection, site not specified (principal); F19.19 Other psychoactive substance abuse with unspecified psychoactive substance-induced disorder; K21.9 Gastro-esophageal reflux disease without esophagitis; F32.9 Major depressive disorder, single episode, unspecified; F43.10 Post-traumatic stress disorder, unspecified; F90.9 Attention-deficit hyperactivity disorder, unspecified type; F17.200 Nicotine dependence, unspecified, uncomplicated; Z79.899 Other long term (current) drug therapy; Z91.048 Other nonmedicinal substance allergy status
CPT/HCPCS: 36415; 80053; 80306; 81001; 81025; 83880; 85025; 99283

== ENCOUNTER 2017-01-23 14:53 | Emergency (ER) | payer OTHER ==
[2017-01-23 15:11] VITALS: BP 119/74; PULSE 108; RESP 20; TEMP 98.8
[2017-01-23] MEDS ORDERED: METOCLOPRAMIDE 10 MG TAB PO STA (15:49)
--- NOTE | 2017-01-23 16:00 | ED ---
General Adult HPI - General Chief complaint: Recheck/Abnormal Lab/Rx Stated complaint: 24 weeks pregant/vomiting/hand pain Time Seen by Provider: 01/23/17 15:37 Source: patient Mode of arrival: ambulatory Limitations: no limitations - History of Present Illness Initial comments: Patient is a 26-year-old female 6 months , who presents with chief complaint of nausea and vomiting since yesterday. Patient also has a secondary concern that she thinks her recently operated finger is infected. Patient states that she had a work-related injury, where her hand caught in a press. The injury happened on January 04, she had a skin graft operation on January 11. At this time, the patient denies any fever though she states that she is still having pain in her hand. Concerning her vomiting, the patient states that she gets nauseous and throws up anytime she tries to eat anything. She does admit though that prior to coming to the emergency department she was able to eat a chicken sandwich from [employer]. On initial evaluation, vital signs are stable. Patient did not have any other significant medical history. She has not tried to take anything for her nausea. - Related Data Home Medications Medication Instructions Recorded Confirmed ARIPiprazole [Abilify] 10 mg PO HS 07/12/16 08/08/16 Albuterol Inhaler [Ventolin Hfa 2 puff INHALATION RT-QID PRN 07/12/16 08/08/16 Inhaler] Butalb/APAP/Caff 50-325-40Mg 1 tab PO Q6H PRN 07/12/16 08/08/16 [Fioricet 50-325-40] Divalproex ER [Depakote ER] 500 mg PO BID 07/12/16 08/08/16 Gabapentin [Neurontin] 300 mg PO TID 07/12/16 08/08/16 Ibuprofen [Motrin] 600 mg PO Q8HR PRN 07/12/16 08/08/16 Sertraline [Zoloft] 50 mg PO DAILY 07/12/16 08/08/16 Mirtazapine [Mirtazapine] 15 mg PO HS 08/08/16 08/08/16 Omeprazole [PriLOSEC] 20 mg PO DAILY 08/08/16 08/08/16 busPIRone HCL [Buspar] 15 mg PO BID 08/08/16 08/08/16 cloNIDine HCL [Catapres] 0.1 mg PO BID 08/08/16 08/08/16 Previous Rx's Medication Instructions Recorded Ciprofloxacin HCl [Cipro] 500 mg PO Q12HR #10 tablet 08/08/16 Metoclopramide [Reglan] 10 mg PO ACHS PRN #30 tab 01/23/17 Allergies Allergy/AdvReac Type Severity Reaction Status Date / Time Iodinated Contrast- Oral and Allergy Rash/Hives Verified 01/23/17 15:11 IV Dye iodine Allergy Rash/Hives Verified 08/08/16 13:15 Review of Systems ROS Statement: Those systems with pertinent positive or pertinent negative responses have been documented in the HPI. ROS Other: All systems not noted in ROS Statement are negative. Constitutional: Denies: fever, chills Eyes: Denies: vision change ENT: Denies: congestion Respiratory: Denies: cough Cardiovascular: Denies: chest pain Endocrine: Denies: fatigue Gastrointestinal: Reports: nausea, vomiting. Denies: abdominal pain Genitourinary: Denies: dysuria Musculoskeletal: Denies: back pain Skin: Denies: rash, lesions Neurological: Denies: headache Past Medical History Past Medical History: Asthma, GERD/Reflux, Pneumonia Additional Past Medical History / Comment(s): Hep C, bronchits, ulcers,"blood in stool in past-no f/u". nose and lip piercing. History of Any Multi-Drug Resistant Organisms: None Reported Past Surgical History: Ear Surgery Additional Past Surgical History / Comment(s): tubes in ears, left hand grafting Past Anesthesia/Blood Transfusion Reactions: Motion Sickness Additional Past Anesthesia/Blood Transfusion Reaction / Comment(s): clausterphobia Past Psychological History: ADD/ADHD, Depression, PTSD Smoking Status: Current every day smoker Past Alcohol Use History: Occasional Past Drug Use History: Heroin - Past Family History Father Family Medical History: No Reported History Mother Family Medical History: Liver Disease Additional Family Medical History / Comment(s): from cirrhosis of the liver General Exam Limitations: no limitations General appearance: alert, in no apparent distress Head exam: Present: atraumatic, normocephalic Eye exam: Present: normal appearance Respiratory exam: Present: normal lung sounds bilaterally Cardiovascular Exam: Present: regular rate, normal rhythm, normal heart sounds GI/Abdominal exam: Present: soft. Absent: distended, tenderness Rectal exam: Present: deferred Extremities exam: Present: other (Examination left upper extremity shows a postoperative skin grafted hand. The patient's second and third digits have skin grafts in place with dried blood at the surgical site. Bandages were removed, inspection of he has shows what appears to be a viable skin graft with intact motor and sensation. Radial, ulnar, and median nerve function are preserved. Patient has adequate radial pulses. There is no tenderness to palpation of the fingers, hands, or extensor surfaces of the forearm.) Neurological exam: Present: alert, oriented X3 Psychiatric exam: Present: normal affect, normal mood Skin exam: Present: warm, dry, intact Course Vital Signs 01/23/17 15:08 Temperature 98.8 F Pulse Rate 108 H Respiratory 20 Rate Blood Pressure 119/74 O2 Sat by Pulse 98 Oximetry Medical Decision Making - Medical Decision Making Patient presents with a chief complaint of nausea and vomiting, and hand pain. Inspection of the hand as well outlined in the physical examination does not appear to be infected. Skin graft appears to be viable. Patient recently moved to this area and is in the process of transferring care to a new orthopedic surgeon. Patient assures me that she will have close follow-up next week. Patient will be given a dose of Reglan in the emergency department and observed for a short period of time. Patient will be given a by mouth challenge and symptoms improved. 4:58 PM Patient remained stable in the emergency department. Her symptoms have improved. Patient was written a prescription for Reglan. She was instructed to follow up with HOROLOGIST APPRENTICE, and orthopedic hand. At this time, all her questions are answered as best my abilities. Her hand was rewrapped with an Bright bandage. At this time, patient is stable for discharge. Disposition Clinical Impression: Nausea and vomiting during Disposition: HOME SELF-CARE Condition: Good Instructions: Nausea and Vomiting in (ED) Prescriptions: Metoclopramide [Reglan] 10 mg PO ACHS PRN #30 tab PRN Reason: Nausea Referrals: None,Stated [Primary Care Provider] - 1-2 days
== END 2017-01-23 17:05 | disposition home or self-care (01) ==
LOC: EC 14:53
DX: O21.9 Vomiting of pregnancy, unspecified (principal); O99.612 Diseases of the digestive system complicating pregnancy, second trimester; K21.9 Gastro-esophageal reflux disease without esophagitis; O99.342 Other mental disorders complicating pregnancy, second trimester; F90.9 Attention-deficit hyperactivity disorder, unspecified type; F32.9 Major depressive disorder, single episode, unspecified; O99.332 Smoking (tobacco) complicating pregnancy, second trimester; F17.200 Nicotine dependence, unspecified, uncomplicated; Z3A.24 24 weeks gestation of pregnancy; Z79.899 Other long term (current) drug therapy; Z91.041 Radiographic dye allergy status; Z88.8 Allergy status to other drugs, medicaments and biological substances
CPT/HCPCS: 99283

== ENCOUNTER 2017-03-22 17:05 | Emergency (ER) | payer OTHER ==
[2017-03-22] MEDS ORDERED: SODIUM CHLORIDE 0.9% 1,000 ML IV STA (17:27)
--- NOTE | 2017-03-22 17:46 | ED ---
General Adult HPI - General Chief complaint: Overdose Stated complaint: Overdose, unresponsive Time Seen by Provider: 03/22/17 17:10 Source: patient, EMS, RN notes reviewed Mode of arrival: EMS Limitations: no limitations - History of Present Illness Initial comments: 44-year-old female presents to the emergency department with a chief complaint of heroin overdose. Patient is a she . She states that she has used heroin on and off throughout this . Patient states she's been using heroin increased over the last month or so. EMS was called to the scene with because patient was abnormal and she was revived with Narcan. The patient has no complaints at this time. She states that she has been seeking [facility] [employer] care [place]. She states she recently moved up here and has not seen a [employer] TE[employer]IC[employer] symptoms. She states her last menstrual cycle was in the middle of July. She states she was told that she was due between May 06 the . At this time she denies any pain or discomfort. She denies any suicidal or homicidal ideation and states she was just using heroin. The patient denies any other complaints at this time. Patient denies any recent fever, chills, shortness of breath, chest pain, back pain, abdominal pain, nausea vomiting, numbness or tingling, dysuria or hematuria, constipation or diarrhea, headaches or visual changes, or any other current symptoms. - Related Data Home Medications Medication Instructions Recorded Confirmed Sertraline [Zoloft] 50 mg PO DAILY 07/12/16 03/22/17 OLANZapine [ZyPREXA] 5 mg PO DAILY 01/30/17 03/22/17 Allergies Allergy/AdvReac Type Severity Reaction Status Date / Time Iodinated Contrast- Oral and Allergy Rash/Hives Verified 03/22/17 17:20 IV Dye iodine Allergy Rash/Hives Verified 03/22/17 17:20 Review of Systems ROS Statement: Those systems with pertinent positive or pertinent negative responses have been documented in the HPI. ROS Other: All systems not noted in ROS Statement are negative. Past Medical History Past Medical History: Asthma, GERD/Reflux, Pneumonia Additional Past Medical History / Comment(s): Hep C, bronchits, ulcers,"blood in stool in past-no f/u". nose and lip piercing. History of Any Multi-Drug Resistant Organisms: None Reported Past Surgical History: Ear Surgery Additional Past Surgical History / Comment(s): tubes in ears, left hand grafting Past Anesthesia/Blood Transfusion Reactions: Motion Sickness Additional Past Anesthesia/Blood Transfusion Reaction / Comment(s): clausterphobia Past Psychological History: ADD/ADHD, Bipolar, Depression, PTSD, Schizoaffective Disorder Smoking Status: Current every day smoker Past Alcohol Use History: None Reported Past Drug Use History: Heroin - Past Family History Father Family Medical History: No Reported History Mother Family Medical History: Liver Disease Additional Family Medical History / Comment(s): from cirrhosis of the liver General Exam Limitations: no limitations General appearance: alert, in no apparent distress Head exam: Present: atraumatic, normocephalic, normal inspection Eye exam: Present: normal appearance, EOMI. Absent: PERRL (pinpoint), scleral icterus, conjunctival injection, periorbital swelling ENT exam: Present: normal exam, mucous membranes moist Neck exam: Present: normal inspection. Absent: tenderness, meningismus, lymphadenopathy Respiratory exam: Present: normal lung sounds bilaterally. Absent: respiratory distress, wheezes, rales, rhonchi, stridor Cardiovascular Exam: Present: regular rate, normal rhythm, normal heart sounds. Absent: systolic murmur, diastolic murmur, rubs, gallop, clicks GI/Abdominal exam: Present: soft, normal bowel sounds. Absent: distended, tenderness, guarding, rebound, rigid Neurological exam: Present: alert, oriented X3 Psychiatric exam: Present: normal affect, normal mood Skin exam: Present: warm, dry, intact, normal color. Absent: rash Course Vital Signs 03/22/17 03/22/17 03/22/17 17:09 18:41 19:28 Temperature 98.1 F Pulse Rate 124 H 103 H 82 Respiratory 18 15 17 Rate Blood Pressure 121/59 107/58 95/50 O2 Sat by Pulse 96 98 99 Oximetry EKG Findings - EKG Comments: EKG Findings:: normal sinus rhythm with sinus arrhythmia 84 bpm, normal axis, no atopy, no S-T depressions or elevations, Medical Decision Making - Medical Decision Making 27-year-old female presents to the emergency department with a chief complaint of heroin overdose in . EMS stated that they will be filling out a 3200 for the patient. This time lab work is been reviewed. Patient has been stable here in the department. Mother baby's requested we send the patient to them once we medically clear her. This time patient will be sent upstairs. Urine was sent for culture. All questions have been answered. - Lab Data Result diagrams: 03/22/17 18:21 03/22/17 18:21 Lab Results 03/22/17 03/22/17 03/22/17 Range/Units 18:21 18:21 19:00 WBC 18.9 H (3.8-10.6) k/uL RBC 3.03 L (3.80-5.40) m/uL Hgb 9.3 L (11.4-16.0) gm/dL Hct 28.2 L (34.0-46.0) % MCV 92.9 (80.0-100.0) fL MCH 30.8 (25.0-35.0) pg MCHC 33.1 (31.0-37.0) g/dL RDW 13.5 (11.5-15.5) % Plt Count 310 (150-450) k/uL Neutrophils % 90 % Lymphocytes % 6 % Monocytes % 2 % Eosinophils % 1 % Basophils % 0 % Neutrophils # 17.0 H (1.3-7.7) k/uL Lymphocytes # 1.1 (1.0-4.8) k/uL Monocytes # 0.4 (0-1.0) k/uL Eosinophils # 0.1 (0-0.7) k/uL Basophils # 0.0 (0-0.2) k/uL Poikilocytosis Moderate Sodium 134 L (137-145) mmol/L Potassium 3.8 (3.5-5.1) mmol/L Chloride 108 H (98-107) mmol/L Carbon Dioxide 22 (22-30) mmol/L Anion Gap 4 mmol/L BUN 9 (7-17) mg/dL Creatinine 0.64 (0.52-1.04) mg/dL Est GFR (MDRD) Af Amer >60 (>60 ml/min/1.73 sqM) Est GFR (MDRD) Non-Af >60 (>60 ml/min/1.73 sqM) Glucose 98 (74-99) mg/dL Calcium 8.4 (8.4-10.2) mg/dL Total Bilirubin 0.2 (0.2-1.3) mg/dL AST 28 (14-36) U/L ALT 26 (9-52) U/L Alkaline Phosphatase 103 (38-126) U/L Total Protein 6.0 L (6.3-8.2) g/dL Albumin 2.8 L (3.5-5.0) g/dL Urine Color Yellow Urine Appearance Cloudy H (Clear) Urine pH 6.5 (5.0-8.0) Ur Specific Douglas 1.014 (1.001-1.035) Urine Protein 2+ H (Negative) Urine Glucose (UA) 3+ H (Negative) Urine Ketones Negative (Negative) Urine Blood Negative (Negative) Urine Nitrite Negative (Negative) Urine Bilirubin Negative (Negative) Urine Urobilinogen 2.0 (<2.0) mg/dL Ur Leukocyte Esterase Moderate H (Negative) Urine RBC 3 (0-5) /hpf Urine WBC 4 (0-5) /hpf Urine WBC Clumps Few H (None) /hpf Ur Squamous Epith Cells 12 H (0-4) /hpf Urine Bacteria Few H (None) /hpf Hyaline Casts 18 H (0-2) /lpf Urine Mucus Occasional H (None) /hpf Urine Yeast (Budding) Rare H (None) /hpf Urine HCG, Qual (Not Detectd) Salicylates <1.0 mg/dL Urine Opiates Screen Detected H (NotDetected) Ur Oxycodone Screen Not Detected (NotDetected) Urine Methadone Screen Not Detected (NotDetected) Ur Propoxyphene Screen Not Detected (NotDetected) Acetaminophen <10.0 ug/mL Ur Barbiturates Screen Not Detected (NotDetected) U Tricyclic Antidepress Not Detected (NotDetected) Ur Phencyclidine Scrn Not Detected (NotDetected) Ur Amphetamines Screen Not Detected (NotDetected) U Methamphetamines Scrn Not Detected (NotDetected) U Benzodiazepines Scrn Detected H (NotDetected) Urine Cocaine Screen Not Detected (NotDetected) U Marijuana (THC) Screen Detected H (NotDetected) Serum Alcohol <10 mg/dL 03/22/17 Range/Units 19:00 WBC (3.8-10.6) k/uL RBC (3.80-5.40) m/uL Hgb (11.4-16.0) gm/dL Hct (34.0-46.0) % MCV (80.0-100.0) fL MCH (25.0-35.0) pg MCHC (31.0-37.0) g/dL RDW (11.5-15.5) % Plt Count (150-450) k/uL Neutrophils % % Lymphocytes % % Monocytes % % Eosinophils % % Basophils % % Neutrophils # (1.3-7.7) k/uL Lymphocytes # (1.0-4.8) k/uL Monocytes # (0-1.0) k/uL Eosinophils # (0-0.7) k/uL Basophils # (0-0.2) k/uL Poikilocytosis Sodium (137-145) mmol/L Potassium (3.5-5.1) mmol/L Chloride (98-107) mmol/L Carbon Dioxide (22-30) mmol/L Anion Gap mmol/L BUN (7-17) mg/dL Creatinine (0.52-1.04) mg/dL Est GFR (MDRD) Af Amer (>60 ml/min/1.73 sqM) Est GFR (MDRD) Non-Af (>60 ml/min/1.73 sqM) Glucose (74-99) mg/dL Calcium (8.4-10.2) mg/dL Total Bilirubin (0.2-1.3) mg/dL AST (14-36) U/L ALT (9-52) U/L Alkaline Phosphatase (38-126) U/L Total Protein (6.3-8.2) g/dL Albumin (3.5-5.0) g/dL Urine Color Urine Appearance (Clear) Urine pH (5.0-8.0) Ur Specific Douglas (1.001-1.035) Urine Protein (Negative) Urine Glucose (UA) (Negative) Urine Ketones (Negative) Urine Blood (Negative) Urine Nitrite (Negative) Urine Bilirubin (Negative) Urine Urobilinogen (<2.0) mg/dL Ur Leukocyte Esterase (Negative) Urine RBC (0-5) /hpf Urine WBC (0-5) /hpf Urine WBC Clumps (None) /hpf Ur Squamous Epith Cells (0-4) /hpf Urine Bacteria (None) /hpf Hyaline Casts (0-2) /lpf Urine Mucus (None) /hpf Urine Yeast (Budding) (None) /hpf Urine HCG, Qual Detected (Not Detectd) Salicylates mg/dL Urine Opiates Screen (NotDetected) Ur Oxycodone Screen (NotDetected) Urine Methadone Screen (NotDetected) Ur Propoxyphene Screen (NotDetected) Acetaminophen ug/mL Ur Barbiturates Screen (NotDetected) U Tricyclic Antidepress (NotDetected) Ur Phencyclidine Scrn (NotDetected) Ur Amphetamines Screen (NotDetected) U Methamphetamines Scrn (NotDetected) U Benzodiazepines Scrn (NotDetected) Urine Cocaine Screen (NotDetected) U Marijuana (THC) Screen (NotDetected) Serum Alcohol mg/dL Disposition Clinical Impression: Drug overdose, Polysubstance abuse, Disposition: HOME SELF-CARE Condition: Stable Instructions: Polysubstance Abuse (ED) Additional Instructions: Go directly to mother-baby for continued evaluation. Referrals: Cari Zacarias [Hepatology Physician] - 1-2 days Time of Disposition: 19:38
[2017-03-22 18:30] LABS: Basophils % (A) 0 %; CH 32.3; CHCM 35.1; Eosinophils # (A) 0.1 k/uL (0-0.7); Eosinophils % (A) 1 %; HCT 28.2 % (34.0-46.0); HGB 9.3 gm/dL (11.4-16.0); Luc # (Auto) 0.18; Luc % (Auto) 1; Lymphocytes # (A) 1.1 k/uL (1.0-4.8); Lymphocytes % (A) 6 %; MCH 30.8 pg (25.0-35.0); MCHC 33.1 g/dL (31.0-37.0); MCV 92.9 fL (80.0-100.0); Monocytes # (A) 0.4 k/uL (0-1.0); Monocytes % (A) 2 %; Neutrophils % (A) 90 %; Poikilocytosis Moderate; RBC 3.03 m/uL (3.80-5.40); RDW 13.5 % (11.5-15.5); WBC 18.9 k/uL (3.8-10.6); WBC (Perox) 17.65
[2017-03-22 18:55] LABS: ALT 26 U/L (9-52); AST 28 U/L (14-36); Acetaminophen <10.0 ug/mL; Alcohol <10 mg/dL; Alkaline Phosphatase 103 U/L (38-126); Anion Gap 4 mmol/L; Blood Urea Nitrogen 9 mg/dL (7-17); Calcium 8.4 mg/dL (8.4-10.2); Carbon Dioxide 22 mmol/L (22-30); Chloride 108 mmol/L (98-107); Glucose 98 mg/dL (74-99); Non-African American GFR(MDRD) >60 (>60 ml/min/1.73 sqM); Potassium 3.8 mmol/L (3.5-5.1); Salicylate <1.0 mg/dL; Sodium 134 mmol/L (137-145); Total Bilirubin 0.2 mg/dL (0.2-1.3)
[2017-03-22 19:16] LABS: Appearance,Urine Cloudy (Clear); Bacteria,Urine Few /hpf; Bilirubin,Urine Negative (Negative); Glucose,Urine (UA) 3+ (Negative); Ketones,Urine Negative (Negative); Leukocyte Esterase,Urine Moderate (Negative); Mucus,Urine Occasional /hpf; Nitrite,Urine Negative (Negative); PH, Urine 6.5 (5.0-8.0); Particle Count 8818; Protein,Urine 2+ (Negative); RBC,Urine 3 /hpf (0-5); Specific Gravity,Urine 1.014 (1.001-1.035); Squamous Epithelial Cell,Urine 12 /hpf (0-4); UA Billing (MACRO vs. MICRO) MICRO; WBC,Urine 4 /hpf (0-5)
[2017-03-22 20:21] VITALS: BP 119/56; PULSE 74; RESP 12; TEMP 97.1
== END 2017-03-22 20:36 | disposition home or self-care (01) ==
LOC: EC 17:05
DX: O99.323 Drug use complicating pregnancy, third trimester (principal); F19.10 Other psychoactive substance abuse, uncomplicated; T40.1X1A Poisoning by heroin, accidental (unintentional), initial encounter; O99.343 Other mental disorders complicating pregnancy, third trimester; F31.9 Bipolar disorder, unspecified; F43.10 Post-traumatic stress disorder, unspecified; O99.333 Smoking (tobacco) complicating pregnancy, third trimester; F17.200 Nicotine dependence, unspecified, uncomplicated; Z79.899 Other long term (current) drug therapy; Z91.041 Radiographic dye allergy status; Z91.048 Other nonmedicinal substance allergy status; Z3A.00 Weeks of gestation of pregnancy not specified
CPT/HCPCS: 36415; 59025; 80053; 80306; 80320; 81001; 81025; 83520; 85025; 87086; 93005; 96360; 96361; 99213; 99284

== ENCOUNTER 2017-03-22 20:39 | Outpatient (CLI) | payer OTHER ==
[2017-03-22 22:27] VITALS: BP 121/57; PULSE 76; RESP 16; TEMP 97.4
--- NOTE | 2017-03-23 11:22 | P.MSEPDOC ---
Presenting Problems - Arrival Data Date of Arrival on Unit: 03/22/17 Time of Arrival on Unit: 20:38 Mode of Transport: Wheelchair - Complaint OB-Reason for Admission/Chief Complaint: Other Comment: heroin overdose Medical History - Information : 7 Para: 4 Term: 4 : 0 Abortions: Spontaneous or Elective: 0 Number of Living Children: 4 - Gestational Age Gestational Age by KARNIA (wks/days): 31 Weeks and 5 Days - History Complications: Smoker, Hx. Substance Abuse Comment: pt uses heroin every day. states she uses about 1/2 gram per day. currently here for overdose. was given narcan at home by EMT Review of Systems - Review of Systems Constitutional: No problems Breast: No problems ENT: No problems Cardiovascular: No problems Respiratory: No problems Gastrointestinal: No problems Genitourinary: No problems Musculoskeletal: No problems Neurological: No problems Skin: No problems Vital Signs - Temperature Temperature: 97.4 F Temperature Source: Temporal Artery Scan - Pulse Right Sitting Brachial Pulse Rate: 76 Pulse Assessment Method: Automatic Cuff - Respirations Respiratory Rate: 16 Oxygen Delivery Method: Room Air O2 Sat by Pulse Oximetry: 98 - Blood Pressure Right Arm Sitting Blood Pressure: 121/57 Blood Pressure Mean: 78 Blood Pressure Source: Automatic Cuff Medical Screen Scoring (Pre) - Cervical Exam Dilation: Exam Deferred Effacement: Exam Deferred Membranes: Intact - Uterine Contractions Frequency: N/A Duration: N/A Intensity: N/A - Maternal Vital Signs Maternal Temperature: N/A Maternal Blood Pressure: N/A Signs of Preeclampsia: N/A Maternal Respirations: N/A - Pain Assessment Pain Location and Character: Head Pain Scale Used: Numeric (1 - 10) Pain Intensity: 7 Pain Management Goal: 2 Pain Description: *Acute, Aching Pain Radiation Location: n/a Pain Frequency: Occasional Pain Duration: 1 Pain Duration Units: Hours Pain Behavior: Vocalization Non-Pharmacological Interventions: Darkened Room, Ice, Position/Reposition - Assessment Baseline FHR: 130 Heart Rate - NICHD Category: Category I (Normal) = 0 NST: Reactive Position: N/A Station: N/A - Total Score Total Score (Pre): 0 - Level of Risk Level of Risk: Low (0-5) Physician Notification (Pre) - Physician Notified Physician Notified Date: 03/22/17 Physician Notified Time: 21:31 Physician/Practitioner Notifed:: dr zelaya Spoke With: dr zelaya New Order Received: Yes - Notification Comment Comment: d/c home. pt to have psych evaluation if she states she is thinking about suicide. if not, pt to go home and seek outpatient care for drug use. Disposition - Disposition OB Disposition: Discharge to home Discharge Date: 03/22/17 Discharge Time: 22:15 I agree with the RN Medical Screening Exam: Yes Risk & Benefit of care provided described in d/c instruction: Yes Diagnosis: POISONING BY HEROIN, ACCIDENTAL (UNINTENTIONAL), INIT ENCNTR
== END 2017-03-22 22:15 | disposition home or self-care (01) ==
LOC: FBPOP 20:39
PROVIDERS: ATTEND Obstetrics & Gynecology
DX: T40.1X1A Poisoning by heroin, accidental (unintentional), initial encounter (principal); O9A.22 Injury, poisoning and certain other consequences of external causes complicating childbirth; Z3A.31 31 weeks gestation of pregnancy
CPT/HCPCS: 59025; G0463; 99213

== ENCOUNTER 2017-04-09 17:32 | Outpatient (CLI) | payer OTHER ==
[2017-04-09 18:08] LABS: Appearance,Urine Clear (Clear); Bilirubin,Urine Negative (Negative); Blood,Urine Negative (Negative); Color,Urine Yellow; Glucose,Urine (UA) Negative (Negative); Ketones,Urine 2+ (Negative); Leukocyte Esterase,Urine Negative (Negative); Nitrite,Urine Negative (Negative); Protein,Urine Trace (Negative); Specific Gravity,Urine 1.014 (1.001-1.035)
[2017-04-09 18:13] VITALS: BP 127/63; PULSE 90; RESP 17; TEMP 97.8
[2017-04-09 18:49] LABS: ALT 35 U/L (9-52); AST 21 U/L (14-36); Blood Urea Nitrogen 7 mg/dL (7-17); LDH 406 U/L (313-618); Uric Acid 3.8 mg/dL (3.7-7.4)
[2017-04-09 18:55] LABS: Basophils % (A) 0 %; Eosinophils # (A) 0.2 k/uL (0-0.7); Eosinophils % (A) 2 %; HCT 27.8 % (34.0-46.0); HGB 8.8 gm/dL (11.4-16.0); Hypochromasia Moderate; Lymphocytes # (A) 1.1 k/uL (1.0-4.8); Lymphocytes % (A) 12 %; MCH 29.2 pg (25.0-35.0); MCHC 31.7 g/dL (31.0-37.0); MCV 92.1 fL (80.0-100.0); Mean Platelet Volume 7.6; Monocytes # (A) 0.4 k/uL (0-1.0); Monocytes % (A) 4 %; Neutrophils # (A) 7.7 k/uL (1.3-7.7); Neutrophils % (A) 81 %; Platelet Count 260 k/uL (150-450); Poikilocytosis Slight; RBC 3.02 m/uL (3.80-5.40); RDW 14.1 % (11.5-15.5); WBC 9.4 k/uL (3.8-10.6)
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
== END 2017-04-09 19:17 | disposition home or self-care (01) ==
LOC: FBPOP 17:32
PROVIDERS: ATTEND Obstetrics & Gynecology
DX: O12.03 Gestational edema, third trimester (principal); O99.323 Drug use complicating pregnancy, third trimester; F19.19 Other psychoactive substance abuse with unspecified psychoactive substance-induced disorder; Z3A.34 34 weeks gestation of pregnancy
CPT/HCPCS: 59025; 82565; 83615; 84450; 84460; 84520; 84550; 85025; 81003; G0463; 99215

== ENCOUNTER 2017-04-20 03:23 | Outpatient (CLI) | payer OTHER ==
[2017-04-20 04:00] VITALS: BP 130/61; PULSE 77; RESP 16; TEMP 98.5
--- NOTE | 2017-04-28 03:09 | P.MSEPDOC ---
Presenting Problems - Arrival Data Date of Arrival on Unit: 04/20/17 Time of Arrival on Unit: 03:23 Mode of Transport: Wheelchair - Complaint OB-Reason for Admission/Chief Complaint: Possible Onset of Labor Comment: pt c/o cramping for two hours. Medical History - Information : 7 Para: 4 Term: 4 : 0 Abortions: Spontaneous or Elective: 2 Number of Living Children: 4 - Gestational Age Gestational Age by KARINA (wks/days): 35 Weeks and 6 Days - History Complications: Hx. Substance Abuse Comment: pt admits to heroin use. states the last time she used was 2 days ago. states she is trying to "ween herself off" Review of Systems - Review of Systems Constitutional: No problems Breast: No problems ENT: No problems Cardiovascular: No problems Respiratory: No problems Gastrointestinal: No problems Genitourinary: No problems Musculoskeletal: No problems Neurological: No problems Skin: No problems Vital Signs - Temperature Temperature: 98.5 F Temperature Source: Temporal Artery Scan - Pulse Right Sitting Brachial Pulse Rate: 77 Pulse Assessment Method: Automatic Cuff - Respirations Respiratory Rate: 16 Oxygen Delivery Method: Room Air - Blood Pressure Right Arm Sitting Blood Pressure: 130/61 Blood Pressure Mean: 84 Blood Pressure Source: Automatic Cuff Medical Screen Scoring (Pre) - Cervical Exam Dilation: 1-3 cm = 1 Membranes: Intact - Uterine Contractions Frequency: > 5 minutes apart = 1 Duration: > 40 seconds = 2 Intensity: N/A - Maternal Vital Signs Maternal Temperature: N/A Maternal Blood Pressure: N/A Signs of Preeclampsia: N/A Maternal Respirations: N/A - Pain Assessment Pain Location and Character: Lower, Abdomen Pain Scale Used: Numeric (1 - 10) Pain Intensity: 8 Pain Management Goal: 3 Pain Description: Cramping Pain Radiation Location: n/a Pain Frequency: Intermittent Pain Duration: 2 Pain Duration Units: Hours Pain Behavior: Guarding, Vocalization Pain Aggravating Factors: None Non-Pharmacological Interventions: Heat - Maternal Trauma Maternal Trauma: N/A - Assessment Baseline FHR: 135 Heart Rate - NICHD Category: Category I (Normal) = 0 NST: Reactive Position: N/A - Total Score Total Score (Pre): 4 - Level of Risk Level of Risk: Low (0-5) Physician Notification (Pre) - Physician Notified Physician Notified Date: 04/20/17 Physician Notified Time: 03:38 Physician/Practitioner Notifed:: dr cornejo Spoke With: dr cornejo New Order Received: Yes - Notification Comment Comment: pt to be discharged home after FHT strip is reactive. Disposition - Disposition OB Disposition: Discharge to home Discharge Date: 04/20/17 Discharge Time: 04:06 I agree with the RN Medical Screening Exam: Yes Risk & Benefit of care provided described in d/c instruction: Yes Diagnosis: FALSE LABOR BEFORE 37 COMPLETED WEEKS OF GEST, THIRD TRI
== END 2017-04-20 04:06 | disposition home or self-care (01) ==
LOC: FBPOP 03:23
PROVIDERS: ATTEND Obstetrics & Gynecology
DX: O47.03 False labor before 37 completed weeks of gestation, third trimester (principal); Z3A.35 35 weeks gestation of pregnancy
CPT/HCPCS: 59025; G0463; 99213

== ENCOUNTER 2017-04-25 01:25 | Observation (INO) | payer OTHER ==
[2017-04-25 01:34] VITALS: RESP 16
[2017-04-25] MEDS ORDERED: SODIUM CHLORIDE 0.9% 1,000 ML IV STA (02:01)
[2017-04-25 02:19] LABS: Basophils % (A) 0 %; Eosinophils # (A) 0.1 k/uL (0-0.7); Eosinophils % (A) 1 %; HCT 34.6 % (34.0-46.0); HGB 10.7 gm/dL (11.4-16.0); Hypochromasia Moderate; Lymphocytes # (A) 1.2 k/uL (1.0-4.8); Lymphocytes % (A) 6 %; MCH 28.1 pg (25.0-35.0); MCHC 30.9 g/dL (31.0-37.0); MCV 90.7 fL (80.0-100.0); Mean Platelet Volume 7.6; Monocytes # (A) 0.5 k/uL (0-1.0); Monocytes % (A) 2 %; Neutrophils # (A) 18.7 k/uL (1.3-7.7); Neutrophils % (A) 91 %; Platelet Count 331 k/uL (150-450); Poikilocytosis Slight; RBC 3.81 m/uL (3.80-5.40); RDW 15.2 % (11.5-15.5); WBC 20.6 k/uL (3.8-10.6)
[2017-04-25] MEDS ORDERED: SODIUM CHLORIDE 0.9% 1,000 ML IV ONE (03:06)
--- NOTE | 2017-04-25 03:09 | ED ---
General Adult HPI - General Chief complaint: Overdose Stated complaint: overdose Time Seen by Provider: 04/25/17 01:36 Source: patient, EMS, RN notes reviewed, old records reviewed Mode of arrival: EMS Limitations: no limitations - History of Present Illness Initial comments: This is a this is a 27-year-old female to the ER for evaluation. This patient presents today for evaluation regarding overdose. Patient has positive 30 greater than 30 weeks. Patient is drug abuser and does have prior visit for overdose. Patient is brought by EMS states patient did have positive DOUG was given Narcan, patient didn't respond to Narcan. Patient herself admits recreational overdose, not homicidal or suicidal - Related Data Home Medications Medication Instructions Recorded Confirmed Sertraline [Zoloft] 50 mg PO DAILY 07/12/16 04/25/17 OLANZapine [ZyPREXA] 5 mg PO DAILY 01/30/17 04/25/17 Allergies Allergy/AdvReac Type Severity Reaction Status Date / Time Iodinated Contrast- Oral and Allergy Unknown Verified 04/25/17 01:35 IV Dye iodine Allergy Unknown Verified 04/25/17 01:35 shellfish derived [Shellfish] Allergy Anaphylaxis Verified 04/25/17 01:35 Review of Systems ROS Statement: Those systems with pertinent positive or pertinent negative responses have been documented in the HPI. ROS Other: All systems not noted in ROS Statement are negative. Past Medical History Past Medical History: Asthma, GERD/Reflux, Pneumonia Additional Past Medical History / Comment(s): Hep C, bronchits, ulcers,"blood in stool in past-no f/u". nose and lip piercing. History of Any Multi-Drug Resistant Organisms: None Reported Past Surgical History: Ear Surgery Additional Past Surgical History / Comment(s): tubes in ears, left hand grafting Past Anesthesia/Blood Transfusion Reactions: Motion Sickness Additional Past Anesthesia/Blood Transfusion Reaction / Comment(s): clausterphobia Past Psychological History: ADD/ADHD, Bipolar, Depression, PTSD, Schizoaffective Disorder Smoking Status: Current every day smoker - Past Family History Father Family Medical History: No Reported History Mother Family Medical History: Liver Disease Additional Family Medical History / Comment(s): from cirrhosis of the liver General Exam Limitations: no limitations General appearance: alert, in no apparent distress Head exam: Present: atraumatic, normocephalic, normal inspection Eye exam: Present: normal appearance, PERRL, EOMI. Absent: scleral icterus, conjunctival injection, periorbital swelling ENT exam: Present: normal exam, mucous membranes moist Neck exam: Present: normal inspection. Absent: tenderness, meningismus, lymphadenopathy Respiratory exam: Present: normal lung sounds bilaterally. Absent: respiratory distress, wheezes, rales, rhonchi, stridor Cardiovascular Exam: Present: normal rhythm, tachycardia, normal heart sounds. Absent: systolic murmur, diastolic murmur, rubs, gallop, clicks GI/Abdominal exam: Present: soft, normal bowel sounds. Absent: distended, tenderness, guarding, rebound, rigid Extremities exam: Present: normal inspection, full ROM, normal capillary refill. Absent: tenderness, pedal edema, joint swelling, calf tenderness Back exam: Present: normal inspection Neurological exam: Present: alert, oriented X3, CN II-XII intact Psychiatric exam: Present: normal affect, normal mood Skin exam: Present: warm, dry, intact, normal color. Absent: rash Course Vital Signs 04/25/17 04/25/17 01:29 02:51 Temperature 97.5 F L Pulse Rate 120 H Pulse Rate [ 120 H [employer] ] Respiratory 16 Rate Blood Pressure 119/65 O2 Sat by Pulse 100 Oximetry - Reevaluation(s) Reevaluation #1: 04/25/17 03:08 Prior ER visits are reviewed including multiple overdoses EKG Findings - EKG Comments: EKG Findings:: EKG shows sinus tachycardia rate 120, NH 140, QRS 76, QTc 452 Medical Decision Making - Medical Decision Making 27 female tear for evaluation regarding positive drug overdose, patient was given Narcan by EMS ER responsive, does admit to overdose, patient be admitted for monitoring - Lab Data Result diagrams: 04/25/17 02:00 04/25/17 02:00 Lab Results 04/25/17 04/25/17 Range/Units 02:00 02:00 WBC 20.6 H (3.8-10.6) k/uL RBC 3.81 (3.80-5.40) m/uL Hgb 10.7 L (11.4-16.0) gm/dL Hct 34.6 (34.0-46.0) % MCV 90.7 (80.0-100.0) fL MCH 28.1 (25.0-35.0) pg MCHC 30.9 L (31.0-37.0) g/dL RDW 15.2 (11.5-15.5) % Plt Count 331 (150-450) k/uL Neutrophils % 91 % Lymphocytes % 6 % Monocytes % 2 % Eosinophils % 1 % Basophils % 0 % Neutrophils # 18.7 H (1.3-7.7) k/uL Lymphocytes # 1.2 (1.0-4.8) k/uL Monocytes # 0.5 (0-1.0) k/uL Eosinophils # 0.1 (0-0.7) k/uL Basophils # 0.0 (0-0.2) k/uL Hypochromasia Moderate Poikilocytosis Slight Glucose 109 H (74-99) mg/dL Disposition Clinical Impression: Drug overdose, Poisoning by opiate or related narcotic, Disposition: ADMITTED IP TO THIS [facility] Condition: Poor Referrals: None,Stated [Primary Care Provider] - 1-2 days
[2017-04-25 04:00] LABS: Appearance,Urine Clear (Clear); Bilirubin,Urine Negative (Negative); Blood,Urine Negative (Negative); Color,Urine Yellow; Glucose,Urine (UA) 3+ (Negative); Granular Casts,Urine 152 /lpf (0); Hyaline Casts,Urine 14 /lpf (0-2); Ketones,Urine Negative (Negative); Leukocyte Esterase,Urine Negative (Negative); Mucus,Urine Few /hpf; Nitrite,Urine Negative (Negative); Protein,Urine 2+ (Negative); RBC,Urine <1 /hpf (0-5); Specific Gravity,Urine 1.016 (1.001-1.035); Squamous Epithelial Cell,Urine 1 /hpf (0-4); Urobilinogen,Urine <2.0 mg/dL (<2.0); WBC,Urine 7 /hpf (0-5)
[2017-04-25 04:01] LABS: Amphetamine Screen,Urine Not Detected (NotDetected); Barbiturate Screen,Urine Not Detected (NotDetected); Benzodiazepines Screen,Urine Detected (NotDetected); Cocaine Screen,Urine Not Detected (NotDetected); Methadone Screen, Urine Not Detected (NotDetected); Opiate Screen,Urine Detected (NotDetected); Oxycodone Screen, Urine Not Detected (NotDetected); Phencyclidine Screen,Urine Not Detected (NotDetected); Tricyclic Antidepressant,Urine Not Detected (NotDetected); Urn Cannabinoid Scrn Not Detected (NotDetected)
--- NOTE | 2017-04-25 08:04 | US ---
EXAMINATION TYPE: US OB >= 14 wk fetus DATE OF EXAM: 04/25/2017 COMPARISON: None CLINICAL HISTORY: Complete OB ultrasound for well being, heroine overdose TECHNIQUE: Transabdominal (TA) GESTATIONAL AGE / DATING Physician Established: patient unsure of this date, patient is guessing (36 weeks/4 days) EDC: 05/19/17 Dates by LMP: LMP unknown Dates by First Scan: No previous this is first scan here Dates by Current Scan: (34 weeks/2 days) EDC: 06/04/17 SURVEY IUP: Single PLACENTA: fundal, posterior PREVIA: No Previa AUDI:14.4 cm CERVICAL LENGTH (transabdominal: norm > 3.0cm): 4.2 cm BIOMETRY PRESENTATION: Vertex LIE: Longitudinal BPD: 8.6 cm Head very low, BPD unable to be taken at correct level 34 weeks / 6 days HC: 31.5 cm Head very low, HC unable to be taken at correct level 35 weeks / 2 days AC: 30.3 cm 34 weeks / 2 days FL: 6.6 cm 34 weeks / 1 days ESTIMATED WEIGHT IN GRAMS: 2425 grams ESTIMATED WEIGHT IN LBS/OZ: 5 lbs. 6 oz. WEIGHT PERCENTAGE BASED ON ESTABLISHED DATES: 8.5% HC/AC: 1.0 FL/AC: 21.8 HEART RATE: 124 bpm RHYTHM: Normal Head very low, BPD & HC unable to be taken at correct level. Impressions: 1. Single intrauterine gestation with heart rate measured 124 beats minute. Estimated weight ba sed on these measurements is 2425 g. This is in the 8.5 percentile. 2. Estimated gestational age based on current measurements is 34 weeks 2 days gestation which would h ave a calculated EDC of 06/04/2017. 3. Due to the positioning of the fetus, measurements have some inaccuracy. IMPRESSION:
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
[2017-04-25 11:57] LABS: HIV P24 AG Non-Reactive (Non-Reactive)
[2017-04-25 12:00] LABS: HIV AB P24 Non-Reactive (Non-Reactive)
[2017-04-25 16:26] VITALS: BP 104/62; PULSE 93; TEMP 97.2; BMI 31.3
[2017-04-26 14:11] LABS: C. trachomatis,PCR Negative (Neg,Equiv); Chlamydia trachomatis Source Urine; N. gonorrhoeae,PCR Negative (Neg,Equiv); Neisseria Source Urine
== END 2017-04-25 12:10 | disposition left against medical advice (07) ==
LOC: EC 01:25 → 4FBP 03:06
PROVIDERS: ADMIT Obstetrics & Gynecology; ATTEND Obstetrics & Gynecology
DX: O9A.213 Injury, poisoning and certain other consequences of external causes complicating pregnancy, third trimester (principal); T40.1X1A Poisoning by heroin, accidental (unintentional), initial encounter; Z3A.36 36 weeks gestation of pregnancy; O36.0930 Maternal care for other rhesus isoimmunization, third trimester, not applicable or unspecified; Z79.899 Other long term (current) drug therapy; Z88.3 Allergy status to other anti-infective agents; Z91.041 Radiographic dye allergy status; Z91.013 Allergy to seafood; O99.333 Smoking (tobacco) complicating pregnancy, third trimester; F17.200 Nicotine dependence, unspecified, uncomplicated; F11.10 Opioid abuse, uncomplicated; O99.343 Other mental disorders complicating pregnancy, third trimester; O99.513 Diseases of the respiratory system complicating pregnancy, third trimester; K21.9 Gastro-esophageal reflux disease without esophagitis; J45.909 Unspecified asthma, uncomplicated; Z86.19 Personal history of other infectious and parasitic diseases; F90.9 Attention-deficit hyperactivity disorder, unspecified type; F43.10 Post-traumatic stress disorder, unspecified; F25.9 Schizoaffective disorder, unspecified; F31.9 Bipolar disorder, unspecified
CPT/HCPCS: 99285; 36415; 93005; 86900; 86901; 86762; 82947; 85025; 86850; 87340; 81001; 87491; 87591; 86780; 80306; 87390; 76805; G0378

== ENCOUNTER 2017-04-27 17:52 | Outpatient (CLI) | payer OTHER ==
[2017-04-27 19:09] VITALS: BP 122/74; PULSE 95; RESP 16; TEMP 98.4
--- NOTE | 2017-05-07 20:22 | P.MSEPDOC ---
Presenting Problems - Arrival Data Date of Arrival on Unit: 04/27/17 Time of Arrival on Unit: 17:53 Mode of Transport: Ambulatory - Complaint OB-Reason for Admission/Chief Complaint: Possible Onset of Labor Medical History - Information : 7 Para: 4 Term: 4 : 0 Abortions: Spontaneous or Elective: 2 Number of Living Children: 4 - Gestational Age Gestational Age by KARINA (wks/days): 36 Weeks and 6 Days - History Complications: No Care Comment: hep c Review of Systems - Review of Systems Constitutional: No problems Breast: No problems ENT: No problems Cardiovascular: No problems Respiratory: No problems Gastrointestinal: No problems Genitourinary: No problems Musculoskeletal: No problems Neurological: No problems Skin: No problems Comment: hx herion over doses x 3 in last month or 2. last one 2 days ago Vital Signs - Temperature Temperature: 98.4 F Temperature Source: Tympanic - Pulse Right Radial Pulse Rate: 95 Pulse Assessment Method: Automatic Cuff - Respirations Respiratory Rate: 16 Oxygen Delivery Method: Room Air O2 Sat by Pulse Oximetry: 97 - Blood Pressure Right Arm Blood Pressure: 122/74 Blood Pressure Mean: 90 Blood Pressure Source: Automatic Cuff Medical Screen Scoring (Pre) - Cervical Exam Dilation: 1-3 cm = 1 Effacement: More than 50% = 2 Membranes: Intact - Uterine Contractions Frequency: > 5 minutes apart = 1 Duration: N/A Intensity: N/A - Maternal Vital Signs Maternal Temperature: N/A Maternal Blood Pressure: N/A Signs of Preeclampsia: N/A Maternal Respirations: N/A - Pain Assessment Pain Location and Character: Generalized, Abdomen Pain Scale Used: Numeric (1 - 10) Pain Intensity: 4 Pain Description: Cramping Pain Frequency: Intermittent Pain Behavior: Vocalization Pain Aggravating Factors: Contractions Non-Pharmacological Interventions: Position/Reposition - Maternal Trauma Maternal Trauma: N/A - Assessment Baseline FHR: 140 Heart Rate - NICHD Category: Category I (Normal) = 0 NST: Reactive Position: N/A Station: N/A - Total Score Total Score (Pre): 4 - Level of Risk Level of Risk: Low (0-5) Physician Notification (Pre) - Physician Notified Physician Notified Date: 04/27/17 Physician Notified Time: 18:35 Physician/Practitioner Notifed:: dr juan New Order Received: Yes - Notification Comment Comment: pt taken back to the skilled nursing Disposition - Disposition OB Disposition: Discharge to home Discharge Date: 04/27/17 Discharge Time: 19:50 I agree with the RN Medical Screening Exam: Yes Risk & Benefit of care provided described in d/c instruction: No Diagnosis: FALSE LABOR, UNSPECIFIED
== END 2017-04-27 19:50 ==
LOC: EEVIPCON 17:52 → FBPOP 17:52
PROVIDERS: ATTEND Obstetrics & Gynecology
DX: O47.9 False labor, unspecified (principal); Z3A.36 36 weeks gestation of pregnancy
CPT/HCPCS: 59025; G0463; 99213

== ENCOUNTER 2017-04-28 12:39 | Outpatient (CLI) | payer OTHER ==
[2017-04-28 14:45] VITALS: BP 109/55; PULSE 69; RESP 16; TEMP 98.4
--- NOTE | 2017-04-29 11:11 | P.MSEPDOC ---
Presenting Problems - Arrival Data Date of Arrival on Unit: 04/28/17 Time of Arrival on Unit: 12:39 Mode of Transport: EMS - Complaint OB-Reason for Admission/Chief Complaint: Possible Onset of Labor Medical History - Information : 7 Para: 4 Term: 4 : 0 Abortions: Spontaneous or Elective: 2 Number of Living Children: 4 - Gestational Age Gestational Age by KARINA (wks/days): 37 Weeks and 0 Days - History Complications: No Care, Smoker, Hx. Substance Abuse Comment: Heroine use, overdose 04/25/17 Review of Systems - Review of Systems Constitutional: No problems Breast: No problems ENT: No problems Cardiovascular: No problems Respiratory: No problems Gastrointestinal: No problems Genitourinary: No problems Musculoskeletal: No problems Neurological: No problems Skin: No problems Vital Signs - Temperature Temperature: 98.4 F Temperature Source: Temporal Artery Scan - Pulse Right Sitting Pulse Rate: 69 Pulse Assessment Method: Automatic Cuff - Respirations Respiratory Rate: 16 Oxygen Delivery Method: Room Air O2 Sat by Pulse Oximetry: 100 - Blood Pressure Right Arm Blood Pressure: 109/55 Blood Pressure Mean: 73 Blood Pressure Source: Automatic Cuff Medical Screen Scoring (Pre) - Cervical Exam Dilation: 1-3 cm = 1 Effacement: More than 50% = 2 Membranes: Intact - Uterine Contractions Frequency: > or = 36 weeks =2 Duration: > 40 seconds = 2 - Maternal Vital Signs Maternal Temperature: N/A Maternal Blood Pressure: N/A Signs of Preeclampsia: N/A Maternal Respirations: N/A - Pain Assessment Pain Location and Character: Abdomen Pain Scale Used: Numeric (1 - 10) Pain Intensity: 7 Pain Description: *Acute Pain Frequency: Intermittent Pain Duration Units: Hours Pain Behavior: Vocalization Pain Aggravating Factors: Contractions - Maternal Trauma Maternal Trauma: N/A - Assessment Baseline FHR: 130 Heart Rate - NICHD Category: Category I (Normal) = 0 NST: Reactive Position: N/A Station: N/A - Total Score Total Score (Pre): 7 - Level of Risk Level of Risk: Medium (6-9) Physician Notification (Pre) - Physician Notified Physician Notified Date: 04/28/17 Physician Notified Time: 13:15 Physician/Practitioner Notifed:: Hurtubise New Order Received: Yes (D/C home if no cervical change after 1 hour) Disposition - Disposition OB Disposition: Discharge to home Transferred to:: Discharged to halfway with officer Discharge Date: 04/28/17 Discharge Time: 14:14 I agree with the RN Medical Screening Exam: Yes Risk & Benefit of care provided described in d/c instruction: Yes Diagnosis: FALSE LABOR, UNSPECIFIED
== END 2017-04-28 14:14 | disposition home or self-care (01) ==
LOC: FBPOP 12:39
PROVIDERS: ATTEND Obstetrics & Gynecology
DX: O47.9 False labor, unspecified (principal); Z3A.37 37 weeks gestation of pregnancy
CPT/HCPCS: 59025; 84112; G0463; 99213

== ENCOUNTER 2017-05-06 08:37 | Inpatient (IN) | payer OTHER ==
[2017-05-06] MEDS ORDERED: CARBOPROST TROMETHAMINE 250 MCG/ML 1 ML AMP IM PRN (09:35)
[2017-05-06] MEDS ORDERED: LIDOCAINE 1% (PF) 10 MG/ML (30 ML SDV) SQ PRN (09:35)
[2017-05-06] MEDS ORDERED: OXYTOCIN 10 UNIT/ML 1 ML VIAL IM PRN (09:35)
[2017-05-06] MEDS ORDERED: METHYLERGONOVINE 0.2 MG/ML 1 ML AMP IM PRN (09:35)
[2017-05-06] MEDS ORDERED: TERBUTALINE 1 MG/ML VIAL SQ PRN (09:35)
[2017-05-06] MEDS ORDERED: PENICILLIN G POTASSIUM 5,000,000 UNIT in DEXTROSE 5% IN WATER 100 ML IVPB STA ×2 (09:43)
[2017-05-06] MEDS ORDERED: OXYTOCIN 20 UNITS/1000 ML NS 1,000 ML IV SCH (09:45)
--- NOTE | 2017-05-06 09:53 | P.HPOB ---
History of Present Illness H&P Date: 05/06/17 Chief Complaint: My water broke at 3 AM, yellow particles noted This is a 27-year-old white female 7 para 40-4 EDC 05/19/2017 which patient states was established by early ultrasound, who presents this morning at 38 and one sevenths weeks with a history of her water breaking at 3 AM. She states she is having no uterine contractions, baby has been active, she denies recent intercourse and denies vaginal bleeding. She last smoked a cigarette at 7:30 this morning. Past medical history is significant for chronic migraines, chronic bronchitis. She states she had seizures while using cocaine at age 14, but but no other history of seizure disorder. Past surgical history left finger amputated in January 2017 with plastic surgery. 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 Eustachian tube is placed in the ears as a child. Current medications methadone 20 mg orally each morning, patient did take methadone this morning. This is being managed at [facility]. ALLERGIES iodine and shellfish to which reports swelling and throat closing. She states she is lactose intolerant. Social history one half to one pack per day tobacco since age 12, marijuana in the past last used 2 months ago. Cocaine use as a teenager, states last used at age 16. Para 11 g per day both and connecting and snorting, last used 6 days ago. Patient states she is since August of last year, her 's name is Fabrice. Jus has 1 child appropriate has custody, they live in [place]. Patient has no custody of her previous 4 children, states they are all living with their father. Patient is currently a resident at [facility] where she has been transitioned onto methadone. Family history significant for cirrhosis in patient's mother who at age 41. Patient has no knowledge of her father. She has a 30-year-old sister who is also heroin addict, he has a 28-year-old brother who is in good health. She denies any known history of defects in the family. 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 She denies history of gonorrhea chlamydia HSV or HPV infections. history shows states she had early care at [address] [place] [address] in [place]. Blood type is O-, RhIG has not been received. On exam this is a pleasant white female, she is 5 foot 8 inches, 210 pounds, blood pressure 120/62, pulse 96. Respirations 16. The general physical exam is within normal limits. Patient does have a tongue piercing and I've asked her to remove the tongue ring. She has approximately 40 tattoos on the body. There is no peripheral edema. There is a tether located on the patient's ankle. Fundus is gravid, approximately 36 week centimeters. is vertex to Chris's maneuvers. Chest is clear in all phan. Cervix is 1 cm dilated, posterior, soft, -2, vertex presentation. Artificial amniorrhexis of a fore- bag reveals light green particulate meconium. heart rate is in the 140s with reasonable overall variability, reactive NST not yet obtained. Impression: 38 and one sevenths weeks intrauterine , spontaneous rupture of membranes, not in labor. Patient currently on methadone, transitioning from heroin use. substance abuse services director consult previously obtained, will reconsult. Meconium-stained fluid. Rh- status. Pediatricians aware. Plan: Close maternal and surveillance. Oxytocin per hospital protocol. Prophylactic antibiotics utilizing penicillin G, 6 million units. substance abuse services director consult. Anticipate normal spontaneous vaginal delivery. Review of Systems Except as in HPI Past Medical History Past Medical History: Asthma, GERD/Reflux, Pneumonia Additional Past Medical History / Comment(s): Hep C, bronchits, ulcers,"blood in stool in past-no f/u". nose and lip piercing. History of Any Multi-Drug Resistant Organisms: None Reported Past Surgical History: Ear Surgery Additional Past Surgical History / Comment(s): tubes in ears, left hand grafting , amputation of finger on left hand Past Anesthesia/Blood Transfusion Reactions: Motion Sickness Additional Past Anesthesia/Blood Transfusion Reaction / Comment(s): clausterphobia Smoking Status: Current every day smoker - Past Family History Father Family Medical History: No Reported History Mother Family Medical History: Liver Disease Additional Family Medical History / Comment(s): from cirrhosis of the liver Medications and Allergies Home Medications Medication Instructions Recorded Confirmed Type Sertraline [Zoloft] 50 mg PO DAILY 07/12/16 04/28/17 History OLANZapine [ZyPREXA] 5 mg PO DAILY 01/30/17 04/28/17 History Allergies Allergy/AdvReac Type Severity Reaction Status Date / Time Iodinated Contrast- Oral and Allergy Unknown Verified 05/06/17 09:18 IV Dye iodine Allergy Unknown Verified 05/06/17 09:18 shellfish derived [Shellfish] Allergy Anaphylaxis Verified 05/06/17 09:18 Exam - Vital Signs Vital signs: Intake and Output 05/05/17 05/06/17 05/06/17 22:59 06:59 14:59 Other: Weight 95.254 kg Patient Weight 05/07/17 06:59 Weight 95.254 kg Assessment and Plan Plan: Post maternal and surveillance, please see dictation. Anticipate normal spontaneous vaginal delivery Time with Patient: Greater than 30
[2017-05-06] MEDS: LACTATED RINGERS 1,000 ML IV SCH (09:56)
[2017-05-06 09:59] LABS: Basophils % (A) 0 %; Eosinophils # (A) 0.1 k/uL (0-0.7); Eosinophils % (A) 2 %; HCT 31.1 % (34.0-46.0); HGB 9.6 gm/dL (11.4-16.0); Hypochromasia Slight; Lymphocytes # (A) 1.4 k/uL (1.0-4.8); Lymphocytes % (A) 22 %; MCH 26.7 pg (25.0-35.0); MCHC 30.8 g/dL (31.0-37.0); MCV 86.6 fL (80.0-100.0); Mean Platelet Volume 8.2; Monocytes # (A) 0.4 k/uL (0-1.0); Monocytes % (A) 7 %; Neutrophils % (A) 67 %; Platelet Count 306 k/uL (150-450); Poikilocytosis Slight; RBC 3.59 m/uL (3.80-5.40); RDW 14.8 % (11.5-15.5)
[2017-05-06 10:04] LABS: Phencyclidine Screen,Urine Not Detected (NotDetected); Urn Cannabinoid Scrn Not Detected (NotDetected)
[2017-05-06 10:05] LABS: Amphetamine Screen,Urine Not Detected (NotDetected); Barbiturate Screen,Urine Not Detected (NotDetected); Benzodiazepines Screen,Urine Not Detected (NotDetected); Cocaine Screen,Urine Not Detected (NotDetected); Methadone Screen, Urine Detected (NotDetected); Opiate Screen,Urine Not Detected (NotDetected); Oxycodone Screen, Urine Not Detected (NotDetected); Tricyclic Antidepressant,Urine Not Detected (NotDetected)
[2017-05-06 11:24] VITALS: BMI 31.9
[2017-05-06] MEDS ORDERED: BUPIVACAINE (PF) 0.25% 30 ML VIAL ONE (12:26)
[2017-05-06] MEDS ORDERED: SODIUM CHLORIDE 0.9% 100 ML BAG ONE (12:26)
[2017-05-06] MEDS ORDERED: fentaNYL (PF) 50 MCG/ML 5 ML AMP ONE (12:26)
[2017-05-06] MEDS: PENICILLIN G POTASSIUM 2,500,000 UNIT in DEXTROSE 5% IN WATER 100 ML IVPB SCH ×2 (13:59)
[2017-05-06] MEDS ORDERED: LANOLIN CREAM 5 GM TUBE TOPICAL PRN (14:20)
[2017-05-06] MEDS ORDERED: ZOLPIDEM 5 MG TAB PO PRN (14:20)
[2017-05-06] MEDS ORDERED: Acetaminophen-Codeine 300-30mg TAB PO PRN (14:20)
[2017-05-06] MEDS ORDERED: diphenhydrAMINE ELIXIR 25 MG/10 ML CUP PO PRN (14:20)
[2017-05-06] MEDS ORDERED: diphenhydrAMINE 50 MG/ML 1 ML VIAL IVP PRN ×2 (14:20)
[2017-05-06] MEDS ORDERED: diphenhydrAMINE 25 MG CAP PO PRN (14:20)
[2017-05-06] MEDS ORDERED: WITCH HAZEL 1 EACH MED..PAD TOPICAL PRN (14:20)
[2017-05-06] MEDS ORDERED: BENZOCAINE/MENTHOL SPRAY 1 GM/SPRAY AEROSOL TOPICAL PRN (14:20)
[2017-05-06] MEDS ORDERED: HYDROCORTISONE 2.5% RECTAL CREAM 30 GM TUBE RECTAL PRN (14:20)
[2017-05-06] MEDS ORDERED: diphenhydrAMINE 50 MG CAP PO PRN (14:20)
[2017-05-06] MEDS ORDERED: SIMETHICONE 80 MG CHEWABLE PO PRN (14:20)
--- NOTE | 2017-05-06 14:20 | P.PROBDLV ---
Vaginal Delivery Note - . Vaginal Delivery Note: this is a 27-year-old 7 para 4024 EDC 05/19/2017 at 38 and one sevenths weeks' gestation. Patient presents with spontaneous amniorrhexis which occurred at home at 0300 hrs., yellow-green fluid. She denied uterine contractions on admission. She has not had consistent care and has a history of heroin use including 3 presentations to the emergency room in asystole. Please see my dictated history and physical for details. On admission patient was 1 cm dilated, 50% effaced, posterior, -3, vertex. Artificial amniorrhexis of 4 bag was performed. Oxytocin was started and titrated per hospital protocol. Penicillin G prophylaxis has been given per our prototype. She became uncomfortable and requested an epidural, this was placed without difficulty per the anesthesia staff. Patient progressed well through the first stage of labor with reasonable-appearing heart tones, type I decelerations noted on internal scalp lead placement. She became completely dilated at 1405 hrs. Perineal body was prepped and draped in the usual sterile fashion. 's head delivered occiput anterior and he restituted accordingly. There was no nuchal cord noted. The left or anterior shoulder was delivered from underneath the pubic symphysis after suctioning of the oropharynx, nasopharynx, and external nares. Patient was officially delivered of a liveborn male at 1406 hrs. Umbilical cord is doubly clamped and ligated, he is handed to waiting nurses for evaluation where scores of 9 and 9 at one and 5 minutes respectively are given. Placenta delivers spontaneously, it is inspected and noted to be very darkly meconium stained, slightly malodorous, with trivascular cord at 1408 hrs. Cord blood is sent to the lab for known Rh- status. At this time inspection of the cervix, vagina, perineum, and periurethral areas reveals no lacerations and no defects. Fundus is firm and in the midline, symmetric and 18 week size upon completion of delivery. Total estimated blood loss 250 mL's. weighed 6 pounds 4.7 ounces or 2855 g. is brought back to the special care nursery for observation regarding the course. Patient is requesting circumcision for her infant son. environmental services technician is aware of patient's status.
[2017-05-06] MEDS ORDERED: BUPIVACAINE (PF) 0.25% 25 ML, fentaNYL (PF) 200 MCG in SODIUM CHLORIDE 0.9% 71 ML EPIDURAL ONE (20:51)
[2017-05-06] MEDS: SENNOSIDES-DOCUSATE SODIUM 1 EACH TAB PO SCH (21:01)
[2017-05-06] MEDS: IBUPROFEN 600 MG TAB PO PRN (21:01)
[2017-05-06] MEDS ORDERED: Rhogam IMMUNE GLOBULIN 1,500 UNIT/1 ML IM ONE (21:26)
[2017-05-06] MEDS: ACETAMINOPHEN TAB 325 MG TAB PO PRN (23:39)
[2017-05-07] MEDS: LACTATED RINGERS 1,000 ML IV SCH (02:45)
[2017-05-07] MEDS: PENICILLIN G POTASSIUM 2,500,000 UNIT in DEXTROSE 5% IN WATER 100 ML IVPB SCH ×2 (02:46)
[2017-05-07] MEDS: IBUPROFEN 600 MG TAB PO PRN ×2 (03:00→15:20)
--- NOTE | 2017-05-07 07:50 | P.PN ---
Subjective Progress Note Date: 05/07/17 Principal diagnosis: post day #1 slept well, minimal vaginal bleeding Objective - Vital Signs Vital signs: Vital Signs Temp 98.2 F 05/07/17 00:30 Pulse 78 05/07/17 00:30 Resp 16 05/07/17 00:30 BP 123/75 05/07/17 00:30 Pulse Ox Intake & Output 05/06/17 05/07/17 05/07/17 18:59 06:59 18:59 Output Total 251 Balance -251 Weight 95.254 kg Output: Urine 1 Estimated Blood Loss 250 Other: # Voids 2 3 - Constitutional General appearance: Present: average body habitus, cooperative - EENT Eyes: Present: PERRLA ENT: Present: hearing grossly normal - Neck Neck: Present: normal ROM Thyroid: bilateral: normal size - Respiratory Respiratory: bilateral: CTA - Cardiovascular Rhythm: regular - Integumentary Integumentary: Present: normal - Neurologic Neurologic: Present: CNII-XII intact - Musculoskeletal Musculoskeletal: Present: gait normal, strength equal bilaterally - Psychiatric Psychiatric: Present: A&O x's 3, appropriate affect - Labs CBC & Chem 7: 05/06/17 09:45 Labs: Abnormal Lab Results - Last 24 Hours (Table) 05/06/17 05/06/17 Range/Units 09:35 09:45 RBC 3.59 L (3.80-5.40) m/uL Hgb 9.6 L (11.4-16.0) gm/dL Hct 31.1 L (34.0-46.0) % MCHC 30.8 L (31.0-37.0) g/dL Urine Methadone Screen Detected H (NotDetected) Assessment and Plan Plan: continue post care. Likely discharge home tomorrow. card services specialist consult in progress Time with Patient: Less than 30
[2017-05-07] MEDS: ACETAMINOPHEN TAB 325 MG TAB PO PRN ×2 (07:53→23:20)
[2017-05-07] MEDS: METHADONE 10 MG TAB PO SCH (09:17)
[2017-05-07] MEDS: SENNOSIDES-DOCUSATE SODIUM 1 EACH TAB PO SCH ×2 (09:17→20:08)
--- NOTE | 2017-05-08 07:10 | P.DS ---
Providers Date of admission: 05/06/17 09:02 Expected date of discharge: 05/08/17 Attending physician: Jennifer Johnson Primary care physician: Stated None Hospital Course: This is a 27-year-old female 7 para 40-4 EDC 05/19/2017 at 38 and one sevenths weeks' gestation. Patient presented to labor and delivery with a history of spontaneous amniorrhexis which occurred at home, yellow-green fluid with particles. She has had no consistent care. Her is remarkable for heroin overdoses, presenting to our hospital multiple times with heroin overdose and Narcan administration. She was recently admitted to [facility] where methadone was started approximate 6 days ago, and she presented on methadone 20 mg orally daily. Please see my dictated history and physical for details. Patient was admitted, epidural was placed per her request. She went on to deliver a liveborn male infant with scores of 9 and 9 at one and 5 minutes respectively. Infant weighed 6 pounds 4.7 ounces or 2855 g. There was an estimated blood loss recorded of 250 mL, no stitches on the perineal body were necessary. Please see my dictated delivery note for details. business services analyst consult has been performed. Patient was restarted on methadone 20 mg orally daily and has done well. infant is in the nursery being monitored. This morning the patient appears well. She is voiding, ambulating and passing flatus without difficulty. Vital signs are stable and she is afebrile. Fundus is firm and in the midline, symmetric and 18 week size. Extremities are negative for edema. Patient has several boils underneath the left arm pit which she states has been present for some time, they are not open or draining. They are soft and fluctuant. She has multiple body piercings and tattoos, otherwise physical exam appears healthy this morning. Perineal body is clean and dry. Fundus is firm and in the midline, symmetric and 18 week size. Extremities are negative for edema. Patient is being discharged home this morning in fair condition. She will follow-up in the office with me in 6 weeks. I have reminded her no intercourse , tampons or douching. We have briefly discussed options for contraception and we will review this further in the office. I've asked her to call with any fevers shakes or chills, foul smelling or copious lochia, with any pain not alleviated by [id number] Advil or Aleve, or indeed with any obstetrical or gynecologic concerns. Patient Condition at Discharge: Fair Plan - Discharge Summary New Discharge Prescriptions: No Action Methadone [Dolophine] 20 mg PO DAILY Discharge Medication List Methadone [Dolophine] 20 mg PO DAILY 05/06/17 [History] Follow up Appointment(s)/Referral(s): Jennifer Johnson MD [STAFF PHYSICIAN] - 6 Weeks Discharge Disposition: TRANSFER TO PSYCH HOSP/UNIT
[2017-05-08] MEDS: METHADONE 10 MG TAB PO SCH (09:15)
[2017-05-08] MEDS: SENNOSIDES-DOCUSATE SODIUM 1 EACH TAB PO SCH (09:15)
[2017-05-08 09:46] VITALS: BP 128/68; PULSE 94; RESP 20; TEMP 98.4
[2017-05-08] MEDS: IBUPROFEN 600 MG TAB PO PRN (11:26)
== END 2017-05-08 15:50 | DRG 775 ==
LOC: FBPOP 08:37 → 4FBP 09:02
PROVIDERS: ADMIT Obstetrics & Gynecology; ATTEND Obstetrics & Gynecology
PROC: 10E0XZZ Delivery of Products of Conception, External Approach (ICD-10-PCS; principal; 2017-05-06)
PROC: 10907ZC Drainage of Amniotic Fluid, Therapeutic from Products of Conception, Via Natural or Artificial Opening (ICD-10-PCS; 2017-05-06)
PROC: 00HU33Z Insertion of Infusion Device into Spinal Canal, Percutaneous Approach (ICD-10-PCS; 2017-05-06)
PROC: 3E0R3NZ Introduction of Analgesics, Hypnotics, Sedatives into Spinal Canal, Percutaneous Approach (ICD-10-PCS; 2017-05-06)
DX: O48.0 Post-term pregnancy (principal); O99.324 Drug use complicating childbirth; Z86.74 Personal history of sudden cardiac arrest; F11.99 Opioid use, unspecified with unspecified opioid-induced disorder; O99.334 Smoking (tobacco) complicating childbirth; O77.0 Labor and delivery complicated by meconium in amniotic fluid; F17.210 Nicotine dependence, cigarettes, uncomplicated; L02.92 Furuncle, unspecified; O99.72 Diseases of the skin and subcutaneous tissue complicating childbirth; Z3A.40 40 weeks gestation of pregnancy; Z86.69 Personal history of other diseases of the nervous system and sense organs; Z89.022 Acquired absence of left finger(s); Z91.011 Allergy to milk products; Z91.013 Allergy to seafood; Z81.3 Family history of other psychoactive substance abuse and dependence; Z37.0 Single live birth; Z87.01 Personal history of pneumonia (recurrent); Z86.19 Personal history of other infectious and parasitic diseases; Z79.899 Other long term (current) drug therapy; Z91.041 Radiographic dye allergy status
CPT/HCPCS: 80306; 85025; 85461; 88307